=== PATIENT | female | born 1945 | race Caucasian/White ===

== ENCOUNTER 2023-12-26 22:13 | Inpatient (IN) | payer MEDICARE, SELFPAY ==
[2023-12-26] VITALS (20 sets, daily range): BP systolic 69–154; BP diastolic 47–87; BMI 34.5; BMI 34.7
[2023-12-26 16:00] LABS: Hematocrit 40.6 % (37.0-47.0); Hemoglobin 13.8 g/dL (12.0-16.0); Mean Corpuscular Hgb 30.1 pg (27.0-31.0); Mean Corpuscular Volume 88.5 fL (81.0-99.0); Mean Platelet Volume 10.9 fL (7.4-10.4); Platelet Count 167 10^3/uL (130-400); Red Blood Cell Count 4.59 10^6/uL (4.20-5.40); Red Cell Dist. Width 14.3 % (11.5-14.5); White Blood Cell Count 9.4 10^3/uL (4.8-10.8)
[2023-12-26 16:12] LABS: Lactic Acid 2.7 mmol/L (0.7-2.0)
[2023-12-26 16:13] LABS: ALT (SGPT) 11 U/L (0-35); AST (SGOT) 24 U/L (14-36); Alkaline Phosphatase 97 U/L (38-126); Blood Urea Nitrogen 40 mg/dl (7-17); Calcium 9.4 mg/dl (8.4-10.2); Carbon Dioxide 20 mmol/L (22-30); Chloride 100 mmol/L (98-107); Glucose 153 mg/dl (70-99); Potassium 3.6 mmol/L (3.5-5.1); Sodium 133 mmol/L (135-145); Total Protein 6.5 g/dl (6.3-8.2); eGFR 26.36
[2023-12-26 16:18] LABS: % Basophils 0.6 % (0-2); % Eosinophils 0.1 % (0-6); % Immature Granulocytes 0.7 % (0-0.5); % Lymphocytes 3.9 % (20.5-51.1); % Monocytes 4.8 % (1.7-9.3); % Neutrophils 89.9 % (42.2-75.2); Absolute Basophils 0.1 10^3/uL (0-0.2); Absolute Immature Granulocytes 0.1 10^3/uL (0-0.05); Absolute Lymphocytes 0.4 10^3/uL (1.2-3.4); Absolute Monocytes 0.5 10^3/uL (0.1-0.6); Absolute Neutrophils 8.5 10^3/uL (1.4-6.5); Nucleated Red Blood Cells % 0 %
[2023-12-26 16:20] LABS: COVID-19 Antigen Negative (Negative)
--- NOTE | 2023-12-26 17:47 | ED.GENMED ---
History of Present Illness
General
Chief Complaint: Fever
Source: patient
Exam Limitations: none
Time Seen by Provider: 12/26/23 17:23
Nursing documentation reviewed up to this point in time: agreed with
History of Present Illness
History of Present Illness:
Patient presents to ED secondary to 3-day history of 'not feeling well', associated with nausea and vomiting, as well as difficulty with urination starting this afternoon. Patient also reports fever at home. Denies diarrhea. Denies headache.
Denies coughing. Denies chest pain or shortness of breath. Denies abdominal pain. Denies back pain. Of note, patient reports having been treated for sepsis secondary to 'blockage' in the past.
Review of Systems
Review of Systems
Allergies reviewed?: Yes
All Other Systems: ROS reviewed and negative except as documented in HPI and ROS
Constitutional: Reports no symptoms
EENT: Reports no symptoms
Respiratory: Reports no symptoms
Cardiac: Reports no symptoms
ABD/GI: Reports nausea and vomiting; Denies abdominal pain or diarrhea
: Reports difficulty voiding
Musculoskeletal: Reports no symptoms
Skin: Reports no symptoms
Neurological: Reports no symptoms
Phy Exam
Physical Exam
Physical Exam:
Physical Exam
General: mild distress, not acutely ill. afebrile
Head: nc/at. eomi
Neck: supple. no meningeal signs.
Heart: s1/s2 regular rate and rhythm, no murmur. equal radial pulses.
Lungs: no acute respiratory distress. clear bilaterally
Abdomen: normal bowel sounds. not tender.
Neuro: alert and oriented. no focal neurological deficits
Skin: no rash
Psychiatric: well kept. interactive and cooperative
Extremities: no edema. no calf tenderness.
Course
Orders/Labs/Results
Orders:
Orders
12/26/23 15:36
CMP [Comprehensive Metabolic Panel] Urgent
COVID-19 Antigen Urgent
Source: Nasal Swab
Complete Blood Count/With Diff Urgent
Lactic Acid Urgent
INF RAPID [Influenza A+B Rapid Molecular] Urgent
DAVI Source: Nasal Swab
Specimen Description:
12/26/23 17:36
Bladder Scan- Treatment ONCE
12/26/23 17:37
CT Abd/pel Without Iv Or Oral Urgent
Comment:
Reason For Exam: flank pain, in ARF
12/26/23 17:38
0.9% Sodium Chloride 1000 ml [Nss] 1,000 ml IV BOLUS
Ondansetron Injectable [Zofran] 4 mg IV NOW STA
12/26/23 19:03
EKG [Electrocardiogram (*1)] Urgent
Reason for Study: Tachycardia
EKG- Treatment ONCE
12/26/23 19:08
Urinalysis Reflex To Culture Urgent
Date Specimen was Collected: 12/26/23
Time Specimen was Collected: 19:07
Urine Microscopic Reflex Cult Urgent
Urine Culture Urgent
DAVI Source: U
Specimen Description:
Date Specimen was Collected: 12/26/23
Time Specimen was Collected: 19:07
12/26/23 19:09
Metoprolol [Lopressor] 5 mg .ROUTE .STK-MED ONE
12/26/23 19:18
Metoprolol [Lopressor] 5 mg IV NOW STA
12/26/23 19:28
0.9% Sodium Chloride 500 ml [Nss] 500 ml IV BOLUS
12/26/23 19:31
EKG [Electrocardiogram (*1)] Urgent
Reason for Study: Other
Other Reason for Exam: rhythm change
EKG- Treatment ONCE
12/26/23 19:51
Ketorolac [Toradol] 15 mg IV NOW STA
12/26/23 20:17
CefTRIAXone [Rocephin] 1,000 mg IV NOW STA
12/26/23 20:19
Sterile Water [Sterile Water For Injection] 10 ml .ROUTE .STK-MED ONE
12/26/23 20:23
Ondansetron Injectable [Zofran] 4 mg .ROUTE .STK-MED ONE
Ondansetron Injectable [Zofran] 4 mg IV NOW STA
12/26/23 20:43
0.9% Sodium Chloride 500 ml [Nss] 500 ml IV BOLUS
HYDROmorphone [Dilaudid] 0.5 mg IV NOW STA
Ondansetron Injectable [Zofran] 4 mg IV NOW STA
12/26/23 21:00
Flush (0.9% Sodium Chloride) [Flush (Nss)] See Dose Instructions IV PER PROTOCOL
12/26/23 21:15
Midazolam HCl [Versed] 2 mg .ROUTE .STK-MED ONE
12/26/23 21:25
Diltiazem 125 mg/125 ml Nss [Cardizem] 125 mg in 125 ml .ROUTE .STK-MED
12/26/23 21:30
Admit/Transfer Patient As Directed
Co-Sign Provider:
Level of Care: Inpatient admission
Assign to:: ICU
Physician / Group: Cleo/Hospitalist
Diagnosis: SVT, Pyelonephritis, UTI
Reason for Hospitalization: SVT, Pyelonephritis, UTI
Expected length of stay greater than two midnights?: Yes
ELOS- Estimated Length of Stay in days: 4
I certify the patient meets the requirements for IP care: Yes
12/26/23 21:31
PRN Pain Medication Management As Directed
May give lesser potent ordered pain med per pt: Yes
preference::
Protocol:: Medication orders for pain may be administered in a
manner that supports deferring to patient preference
when the pt is:
- Requesting an ordered lesser potent pain medication.
Least to most potent pain medications are defined
as: acetaminophen < NSAID < tramadol < opioids
(morphine, oxycodone, hydromorphone).
- Requesting a lesser dose of the same medication IF
ORDERED.
- Requesting a less intrusive route of administration
if both routes are prescribed by the provider (PO <
IV).
12/26/23 21:32
Code Status As Directed
Resuscitation Status: Full Code
Midazolam HCl [Versed] 1 mg IV NOW STA
12/26/23 21:44
Diltiazem [Cardizem] 120 mg .ROUTE .STK-MED ONE
12/26/23 21:51
Diltiazem [Cardizem] 60 mg PO NOW STA
12/26/23 22:03
Amiodarone [Cordarone] 150 mg Dextrose 5%/Water 100 ml [D5w] 100 ml IV NOW
12/26/23 22:15
Amiodarone [Cordarone] 900 mg DEXTROSE 5% PVC-free BAG [D5W PVC-free BAG] 500 ml IV PER PROTOCOL
Initial Dose in mg/min:: 1
Duration of initial dose (hours):: 6
Subsequent dose in mg/min:: 0.5
Duration of subsequent dose (hours):: 18
Maximum dose in mg/min:: 1
Hold and notify provider if:: Heart rate < 60 BPM or SBP < 90 mmHg or MAP < 60 mmHg
12/26/23 22:33
Blood Culture Urgent
DAVI Source: Blood/Venous
Specimen Description:
12/26/23 23:00
0.9% Sodium Chloride 1000 ml [Nss] 1,000 ml IV 125 mls/hr
Acetaminophen [Tylenol/Feverall] 650 mg RECTAL Q4HPRN PRN
Acetaminophen [Tylenol] 650 mg PO Q4HPRN PRN
Amiodarone [Cordarone] 900 mg DEXTROSE 5% PVC-free BAG [D5W PVC-free BAG] 500 ml IV PER PROTOCOL
Initial Dose in mg/min:: 1
Duration of initial dose (hours):: 6
Subsequent dose in mg/min:: 0.5
Duration of subsequent dose (hours):: 18
Maximum dose in mg/min:: 1
Hold and notify provider if:: Heart rate < 60 BPM or SBP < 90 mmHg or MAP < 60 mmHg
Bisacodyl [Dulcolax] 10 mg RECTAL [id number] PRN
Docusate W/Senna [Senokot-S] 1 tablet PO BIDPRN PRN
Polyethylene Glycol Powder [Miralax] 17 grams PO DAILYPRN PRN
12/26/23 23:00
Echo 2D MMode Color/Doppler [Echo 2D MMode Color/Doppler] Routine
Reason for Study: SVT
CARDIOLOGY CONSULT Routine
Consulting Provider: Edward Guevara
Was physician already notified: Yes
Reason for consult: SVT s/p cardioversion, Pyelo/UTI/sepsis
Consult Notification Routine
Specialty to Notify: Chemical Laboratory Scientist
Consult Notification Routine
Specialty to Notify: Urology
Chemical Laboratory Scientist Consult Routine
Consulting Provider: Bella Pate
Was physician already notified: No
Reason for consult: sepsis, UTI, pyelonephritis
UROLOGY CONSULT Routine
Consulting Provider: Garcia Greenberg Jr.
Was physician already notified: No
Comment: question of old stent on CT, pyelo, UTI
Activity As Directed
Activity Level: With Assistance
Intake/ Output As Directed
Frequency: Per unit guidelines
Pneumatic Compression Sleeves As Directed
Type: Knee high
Vital Signs As Directed
Frequency: Per unit guidelines
Weight As Directed
Frequency: Daily
Pulse Ox/spot Check [RESP] Routine
Quantity: 1
DX Deep Vein Thrombosis Video Routine
12/26/23 23:36
Troponin I Q6H
12/27/23 00:00
Piperacillin/Tazo 2.25 Gram [Zosyn] 2.25 grams in 50 ml IV Q6H
12/27/23 05:00
Troponin I Q6H
12/27/23 Breakfast
Full Liquids
At Your Request: Full Participation
Basic Metabolic Panel IN AM
Complete Blood Count/With Diff IN AM
Magnesium IN AM
12/27/23 11:00
Troponin I Q6H
12/27/23 18:00
Enoxaparin Sodium [Lovenox] 40 mg SC QPM
Abnormal Lab Results
12/26/23 12/26/23
15:36 19:08
MPV 10.9 H fL
(7.4-10.4)
Abs Immat Gran (auto) 0.1 H 10^3/uL
(0-0.05)
Absolute Neuts (auto) 8.5 H 10^3/uL
(1.4-6.5)
Absolute Lymphs (auto) 0.4 L 10^3/uL
(1.2-3.4)
Immature Gran % 0.7 H %
(0-0.5)
Neutrophils % 89.9 H %
(42.2-75.2)
Lymphocytes % 3.9 L %
(20.5-51.1)
Sodium 133 L mmol/L
(135-145)
Carbon Dioxide 20 L mmol/L
(22-30)
BUN 40 H mg/dl
(7-17)
Creatinine 1.9 H mg/dL
(0.6-1.0)
Glucose 153 H mg/dl
(70-99)
Lactic Acid 2.7 H mmol/L
(0.7-2.0)
Ur Occult Blood Reflex 3+ A
(Negative)
Urine Nitrite (Reflex) Positive A
(Negative)
Leukocyte Esterase Rfl 2+ A
(Negative)
Urine RBC 3-6 A /HPF
(0-2)
Urine WBC (Reflex) 80-90 A /HPF
(0-5)
Urine Bacteria (Reflex) Many A
(Negative)
Urine Albumin (Reflex) 2+ A
(Neg - Trace)
12/26/23 15:36
12/26/23 15:36
Vital Signs
Initial and Last Documented VS:
Initial Vital Signs
Temp Pulse Resp BP Pulse Ox
100.2 F 94 16 154/87 96
12/26/23 15:21 12/26/23 15:21 12/26/23 15:21 12/26/23 15:21 12/26/23 15:21
Last Documented Vital Signs
Temp Pulse Resp BP Pulse Ox
99 F 77 22 102/57 98
12/27/23 00:00 12/27/23 00:30 12/27/23 00:30 12/27/23 00:00 12/27/23 00:30
Procedures
Cardioversion
Indication:: SVT
Performed by:: Javid Degroot M.D.
Synchronized?: Yes
Energy Used: Other (100 J)
Number of attempts: 1
Successful?: Yes
Complications: None
ASA Risk Score: Class I
Any reaction or bad outcome to prior sedation/anesthesia?: No history of a reaction
Sedation level to be attained: moderate
Chart and allergies reviewed: Yes
Patient reassessed prior to sedation: Yes
Time out completed at (validating right patient & procedure): 21:23
History of difficult intubation: No
Airway free of obstruction: Yes
Patient has a gag reflex: Yes
Patient is able to open mouth: Yes
Patient has no dentures: Yes
Patient has no loose teeth: Yes
Medication administered by Provider during Moderate Sedation: Other (versed)
Total dose administered: 1
Start Time: 21:23
Stop Time: 21:33
MDM/Problems Addressed
MDM/Problems Addressed:
History, exam, blood work, urinalysis, along with CT scan concerning for symptoms secondary to pyelonephritis. Acute renal failure likely secondary to infection as well as dehydration. In addition, during observation ED, patient noted to be in SVT
rhythm on the monitor, requiring treatment with Lopressor 5 mg IV.
Patient will be admitted for further evaluation treatment, including IV fluids, IV antibiotics, and further monitoring secondary to SVT.
As patient is waiting to be admitted, patient noted to show SVT on the monitor with heart rate greater than 180 bpm. Although patient without any symptoms secondary to heart rate, i.e. dizziness/weakness/shortness of breath, patient's blood
pressure continued to decrease. As such, after discussion with patient, decision made to perform cardioversion.
Procedure consent on the chart.
Patient given 1 mg Versed, secondary to hypotension and successfully cardioverted with application of a 100 J. Blood pressure improved and patient noted to be in normal sinus rhythm. Patient will be started on Cardizem infusion.
Unfortunately before Cardizem infusion can be started, patient noted to once again become tachycardic with hypotension. Admitting hospitalist spoke with on-call disabilities services officer, Dr. Guevara. Recommended that patient to be started on amiodarone
infusion.
Critical care statement: A total of 60 minutes of critical care time was provided for this patient. This includes management of unstable vital signs, evaluation of the patient at bedside, reviewing the patient's pertinent medical records, review of
old EKGs and review of pertinent medical records. This time with separate from time utilized to perform the aforementioned documented procedures
*Critical Care Note
Total Time (30-74mins, 75-104mins- exclusive of procedures): 60 min
ED Attending Note
-
Portions of this chart may have been created with voice recognition software.� Occasional wrong word or��sound alike� substitutions may have occurred due to the inherent limitations of voice recognition software.
Discharge Plan
Departure
Patient Disposition: Admit
Date of Disposition: 12/26/23
Time of Disposition: 20:29
Admit to: Telemetry
Presentation/result/management discussed w/ accepting MD/DO: Hospitalist
Discharge Problem:
Acute pyelonephritis, Acute renal failure, SVT (supraventricular tachycardia)
Interventions
Interventions:
*General Assessment Last Done: 12/26/23 18:07
*Neglect/Abuse Screening Last Done: 12/26/23 18:07
ED- Fall Risk Assessment Last Done: 12/26/23 18:11
*ED COVID-19 Vaccine History Last Done: 12/26/23 18:07
*Nursing Disposition Last Done: 12/26/23 23:12
ED- Neurological Assessment Last Done: 12/26/23 18:09
ED-Skin Assessment Last Done: 12/26/23 18:12
Discharge Date and Time
Discharge Date/Time: 12/26/23 23:13
[2023-12-26] MEDS: NSS 1000 IV (18:12)
[2023-12-26] MEDS: ZOFRAN 4 MG IV ×3 (18:12→20:47)
[2023-12-26 19:19] LABS: Urine Albumin 2+ (Neg - Trace); Urine Bilirubin Negative (Negative); Urine Character Clear (Clear); Urine Color Yellow; Urine Glucose Negative (Negative); Urine Ketone Negative (Negative); Urine Leukocyte 2+ (Negative); Urine Nitrite Positive (Negative); Urine Occult Blood 3+ (Negative); Urine Specific Gravity 1.015 (<1.030); Urine Urobilinogen Negative (Neg - 1+)
[2023-12-26] MEDS: LOPRESSOR 5 MG IV (19:19)
[2023-12-26 19:26] LABS: Urine Bacteria Many (Negative); Urine White Cell 80-90 /HPF (0-5)
[2023-12-26] MEDS: NSS 500 IV ×2 (19:28→20:46)
[2023-12-26] MEDS: ROCEPHIN 1000 MG IV (20:21)
[2023-12-26] MEDS: TORADOL 15 MG IV (20:21)
--- NOTE | 2023-12-26 20:41 | HPS.HSE ---
Addendum entered and electronically signed by Kae Gallo, DO 12/26/23 22:16:
Uro consult placed to eval question of old stent on CT imaging
Addendum entered and electronically signed by Kae Gallo, DO 12/26/23 22:11:
Greater than 75 minutes of critical care time is spent on the care of the patient.
Original Note:
Family Physician
-
Family Physician: Turner Mcmullen
Chief Complaint
-
n/v, difficulty urinating
History of Present Illness
The patient is an 78 yo woman with PMH significant for HTN, HLD, TIA, who presents to the ED due to not feeling well for 3 days, associated with nausea, vomiting, and urinary complaints that started today. She has not been able to take her BP
medication Diltiazem for 3 days due to n/v. She's had little PO intake as well due to symptoms. Of note, she has history of septic shock from UTI/Pyelo and possibly kidney stones but she does not recall stents being placed at that time.
ED txt:
Metoprolol 5 mg IV once
IVF 2 liter bolus NS
Toradol 15 mg IV, Dilaudid 0.5 IV, Zofan IV
Rocephin IV
Cardioversion x 1, followed by oral Diltiazem short-acting 60 mg
Amiodarone gtt initiated for persistent SVT s/p cardioversion, in setting of hypotension from suspected sepsis.
Medical History
Past Medical History
Past Medical History: Reports HTN (essential), Hypercholesterolemia, Psychiatric (Depression) and Other (Diverticulosis, OA, TIA, ventral hernia)
Past Surgical History: Reports Appendectomy, Orthopedic (revision of left total knee replacement, lumbar spine sx posterior decompression) and Tonsilectomy
Social History
Tobacco: Non-smoker
Alcohol: Occasional
Drug: None
Personal:
Living: With Family
Family History
Family History: Not pertinent
Allergies / Home Medications
Allergies reflects when Allergies were last updated in [employer].
Home Medications with original date entered in [employer]
Allergy/Medication List:
Allergies
Allergy/AdvReac Type Severity Reaction Status Date / Time
Seasonal Allergy Watery/itching Uncoded 08/01/18 07:29
eyes,
nasal
congestion
Home Medications
diltiazem HCl 120 mg capsule,extended release 24 hr, controlled 120 mg PO QPM 06/09/16
vitamin B complex 1 tab PO QPM 06/09/16
Caltrate 1 tab PO HS 07/20/18
Vitamin C: 1 tab PO QPM 07/20/18
Vitamin D 1 tab PO QPM 07/20/18
mupirocin 2 % topical ointment 1 applic intranasal BID #1 tube 07/22/18
cetirizine 5 mg tablet (Zyrtec) 10 mg PO AMHS 08/01/18
diphenhydramine HCl 25 mg oral strips 25 mg PO DAILY 08/01/18
acetaminophen 325 mg tablet 650 mg (2 x 325 mg) PO QID 08/03/18
aspirin 325 mg tablet,delayed release 325 mg PO DAILY 08/03/18
famotidine 20 mg tablet 20 mg PO HS #30 tabs 08/03/18
naproxen sodium 220 mg tablet (Aleve) 220 mg PO BID ##0 08/03/18
oxycodone 5 mg tablet 5 mg PO Q4HPRN PRN moderate-severe pain ##45 08/03/18
tramadol 50 mg tablet 50 mg PO QID ##30 08/03/18
Review of Systems
-
A 12 point ROS was completed and negative except as noted: Yes
Physical Exam
Vital Signs
Vital Signs
Temp Pulse Resp BP Pulse Ox
100.2 F 92 24 107/77 95
12/26/23 15:21 12/26/23 20:15 12/26/23 20:15 08/18/24 20:00 12/26/23 20:15
Physical Exam
General: Well Developed, Well Nourished, Conversant and Other (in SVT during HPI, without symptoms)
Laboratory Results
-
12/26/23 15:36
12/26/23 15:36
Laboratory Results
Lactic Acid 2.7 mmol/L (0.7-2.0) H 12/26/23 15:36
Total Bilirubin 1.0 mg/dl (0.2-1.3) 12/26/23 15:36
AST 24 U/L (14-36) 12/26/23 15:36
ALT 11 U/L (0-35) 12/26/23 15:36
Alkaline Phosphatase 97 U/L (38-126) 12/26/23 15:36
Data Reviewed
-
CT Scan: Report Reviewed by me (CT a/p stranding and edema along the right kidney which extends along the proximal right ureter. No hydronephrosis. No discrete renal calculus. There is a stent which appears. Adjacent to the distal right ureter
(series 201 image [id number]). The left kidney is unremarkable.)
Impression/Plan
-
IMPRESSION:The patient is an 78 yo woman with PMH significant for HTN, HLD, TIA, who presents to the ED due to not feeling well for 3 days, associated with nausea, vomiting, and urinary complaints that started today. She has not been able to take
her BP medication Diltiazem for 3 days due to n/v. She's had little PO intake as well due to symptoms. Of note, she has history of septic shock from UTI/Pyelo and possibly kidney stones but she does not recall stents being placed at that time.
ED txt:
Metoprolol 5 mg IV once
IVF 2 liter bolus NS
Toradol 15 mg IV, Dilaudid 0.5 IV, Zofan IV
Rocephin IV
Cardioversion x 1, followed by oral Diltiazem short-acting 60 mg
Amiodarone gtt initiated for persistent SVT s/p cardioversion, in setting of hypotension from suspected sepsis.
#Sepsis (fever, tachy, lactic acidosis) associated with SVT and hypotension, due to Acute pyelonephritis, -normal WBC with leftward shift a/w lactic acidosis, tachyarrhythmia, and abnormal UA concerning for UTI
-CT a/p w stranding and edema tracking along the right kidney, tracking along the proximal ureter concerning for pyelonephritis. No hydronephrosis and no discrete renal calculus is visualized. stent which appears. Adjacent to the distal right ureter
(series 201 image [id number]). The left kidney is unremarkable.
-ICU admission, high risk for worsening hemodynamic instability requiring pressor support
-IV Rocephin in ED, will continue abx w IV Zosyn
-blood cx, urine cx pending
-Acid Polymerization Operator consultation
-s/p 2.5L IV sepsis protocol dosing, continue NS 125 mL per hour and bolus as needed
#SVT that is sustained despite IV Lopressor, Cardioversion in ED, and s/p oral Diltazem 60 mg, likely driven by sepsis and volume depletion
-Cards consultation placed
-tele monioring in ICU
-started Amio gtt in ED & continue Amio gtt
-can use Lopressor 5 mg IV prn if still w SVT
-serial trop
-echocardiogram
#Sodium 133
-repeat lab monitoring s/p IVF
#IVETTE Creatinine 1.9 (last creatinine was 0.8) likely due to sepsis
-IVF
-renally dose meds, repeat labs in am
#HLD
-statin
#Essential HTN
-hold Diltiazem for now
DVT proph-PCDs, Lovenox
Full Code
[2023-12-26] MEDS: DILAUDID 0.5 MG IV (20:46)
[2023-12-26] MEDS: VERSED 1 MG IV (21:23)
--- NOTE | 2023-12-26 21:24 | EDRN ---
pt in SVT on monitoring manager, BP 74/53 Dr. Degroot at bedside
2122 1mg versed given IV
2123 shocked pt at 200J
pt returned to NSR on tele monitor
pt awake and alert. BP 124/61
[2023-12-26] MEDS: CARDIZEM 60 MG PO (21:55)
[2023-12-26] MEDS: CORDARONE 103 MG IV (22:28)
[2023-12-26] MEDS: CORDARONE 518 MG IV (22:43)
--- NOTE | 2023-12-26 23:37 | PTCARENOTE ---
received pt. from ED approx 2250.
Currently in NSR, MAPs 85 SBP 90s. Currently normothermic, slightly diaphoretic.
Mentating appropriately, no neurological deficits noted.
Arrived on Amio gtt, started on NSS @ 125ml/hr.
Pt. offers no complaints of pain, discomfort, all questions answered.
[2023-12-27] VITALS (21 sets, daily range): BP systolic 93–169; BP diastolic 57–104; BMI 34.7
[2023-12-27 00:14] LABS: Troponin I 0.046 ng/ml
[2023-12-27] MEDS: NSS 1000 IV ×3 (00:14→21:43)
[2023-12-27] MEDS: ZOSYN 50 IV ×4 (00:14→17:46)
--- NOTE | 2023-12-27 00:41 | W.PN.SEPSIS ---
Sepsis
Vital Signs
Temp Pulse Resp BP Pulse Ox
97.9 F 88 19 99/78 96
12/26/23 23:17 12/26/23 23:09 12/26/23 23:09 12/26/23 23:09 12/27/23 00:02
Physical Exam
Physical Exam:
A focused exam was performed after fluid resuscitation.
Capillary Refill
Bilateral Upper Extremity:
Robby Time: Less than 3 sec
Bilateral Lower Extremity:
Robby Time: Less than 3 sec
Pulse Evaluation
Bilateral Radial:
Pulse Evaluation: Present
Bilateral Dorsalis Pedis:
Pulse Evaluation: Present
--- NOTE | 2023-12-27 04:32 | PTCARENOTE ---
Addendum entered by Seth Mcmullen RN 12/27/23 05:44:
N/V increasing, ICU HASMUKH notified, promethazine gtt ordered.
Addendum entered by Seth Mcmullen RN 12/27/23 04:54:
pt. c/o nausea, zofran ordered.
Original Note:
0500 pt will be switched to 0.5 mg/min of amio gtt.
No change in assessment from prior,
Remains in sinus, normotensive, normothermic.
[2023-12-27] MEDS: CORDARONE 518 MG IV (05:04)
[2023-12-27] MEDS: ZOFRAN 4 MG IV ×3 (05:04→18:41)
[2023-12-27 05:17] LABS: APTT 41.1 Sec (23.4-35.0)
[2023-12-27 05:20] LABS: Blood Urea Nitrogen 40 mg/dl (7-17); Calcium 8.2 mg/dl (8.4-10.2); Carbon Dioxide 20 mmol/L (22-30); Chloride 99 mmol/L (98-107); Estimated Creatinine Clearance 26 ml/min; Glucose 270 mg/dl (70-99); Magnesium 1.8 mg/dl (1.6-2.3); Phosphorus 4.6 mg/dl (2.5-4.5); Potassium 3.8 mmol/L (3.5-5.1); Sodium 131 mmol/L (135-145); eGFR 24.79
[2023-12-27 05:32] LABS: Troponin I 0.097 ng/ml
[2023-12-27 05:34] LABS: Hematocrit 36.4 % (37.0-47.0); Hemoglobin 11.8 g/dL (12.0-16.0); Mean Corp Hgb Conc. 32.4 g/dL (33.0-37.0); Mean Corpuscular Hgb 30.1 pg (27.0-31.0); Mean Corpuscular Volume 92.9 fL (81.0-99.0); Mean Platelet Volume 11.7 fL (7.4-10.4); Platelet Count 167 10^3/uL (130-400); Red Blood Cell Count 3.92 10^6/uL (4.20-5.40); Red Cell Dist. Width 14.6 % (11.5-14.5); White Blood Cell Count 9.7 10^3/uL (4.8-10.8)
[2023-12-27] MEDS: PHENERGAN 50.5 MG IV (05:47)
[2023-12-27 07:08] LABS: Absolute Neutrophils -Man Diff 9.2 10^3/uL (1.4-6.5); Band Neutrophils 20 % (0-3); Lymphocytes 3 % (20-51); Monocytes 2 % (2-9); Segmented Neutrophils 75 % (42-75); Toxic Granulation 1+
[2023-12-27 07:10] LABS: Total Cells Counted 100; Vacuolated Segs 1+
[2023-12-27 07:11] LABS: Platelets Checked Yes
[2023-12-27 07:12] LABS: Normal RBC Morphology No; Ovalocytes Occasional; Polychromasia Occasional
--- NOTE | 2023-12-27 07:42 | CON.CAR ---
Addendum entered and electronically signed by BHAKTI Huston 12/27/23 12:15:
Abnormal troponin, likely nonischemic myocardial injury in the setting of sepsis
-Trend to peak
-Chest pain-free
-EKG in a.m.
Addendum entered and electronically signed by Evaristo Anderson MD 12/27/23 10:56:
I saw and examined the patient.
The PRESS OFFICER's note was reviewed and I agree with the note.
Comment: 78 yo woman admitted with rapid SVT (most c/w AVNRT) in setting of urologic infection and missed dilt doses. Sinus 12 lead ekg unremarkable. No known prior SVT
SVT
- Stop Amio
- Use Adenosine if SVT recurs
- Resume usual Dilt
- I taught her the Valsalva maneuver for self termination
- I reviewed that ablation is available if SVT becomes recurrent/symptomatic
- Outpatient cardiology follow will not likely be needed
Urologic infection
HTN
Mixed hyperlipidemia
Original Note:
Consultation
Consultation Request
Date/Time Consultation Requested: 12/26/2023 23:00
Date/Time Consultation Performed: 12/27/2023 19:45
Requesting Provider: Dr. Gallo
Performing Provider: BHAKTI De Jesus for Dr. Anderson
Reason for Consultation: SVT
Medical History
-
Chief Complaint: Nausea and vomiting
History of Present Illness:
Melanie Robertson is an 78-year-old female (followed by Dr. Morse), with hypertension, dyslipidemia, TIA and OA who presented to the emergency department after feeling unwell. She presented on Wednesday. She states she suddenly had the general sense of
severe fatigue on Wednesday afternoon. She then began having nausea and vomiting. It was mainly dry heaves as she had no appetite. She did not take her medications on Wednesday nor Wednesday due to her constant dry heaving. She has a history of septic
shock due to UTI/pyelonephritis. She was found to be in SVT. She was given Lopressor IV push. There was no change in her rhythm. She underwent cardioversion in the emergency department. She was started on amiodarone. She reports having no
feeling of palpitation, racing heart, syncope, nor dizziness despite her heart rate in the 180s.
Past Medical History
Past Medical History: HTN and Hypercholesterolemia
Past Surgical History: Appendectomy, Orthopedic and Tonsilectomy
Social History
Tobacco: Non-Smoker
Alcohol: Occasional
Drug: None
Personal:
Living: With Family
Employment: Retired
Family History
Family History: Reviewed & Not Pertinent
Allergies / Home Medications
Allergy/AdvReac Type Severity Reaction Status Date / Time
Seasonal Allergy Watery/itching Uncoded 08/01/18 07:29
eyes,
nasal
congestion
�Medication �Instructions �Recorded �Confirmed �Type
diltiazem HCl 120 mg 120 mg PO QPM 06/09/16 08/01/18 History
capsule,extended release 24 hr,
controlled
vitamin B complex 1 tab PO QPM 06/09/16 08/01/18 History
Caltrate 1 tab PO HS 07/20/18 08/01/18 History
Vitamin C: 1 tab PO QPM 07/20/18 08/01/18 History
Vitamin D 1 tab PO QPM 07/20/18 08/01/18 History
mupirocin 2 % topical ointment 1 applic intranasal BID #1 tube 07/22/18 Rx
cetirizine 5 mg tablet (Zyrtec) 10 mg PO AMHS 08/01/18 08/02/18 History
diphenhydramine HCl 25 mg oral 25 mg PO DAILY 08/01/18 08/01/18 History
strips
acetaminophen 325 mg tablet 650 mg (2 x 325 mg) PO QID 08/03/18 Rx
aspirin 325 mg tablet,delayed 325 mg PO DAILY 08/03/18 Rx
release
famotidine 20 mg tablet 20 mg PO HS #30 tabs 08/03/18 Rx
naproxen sodium 220 mg tablet 220 mg PO BID ##0 08/03/18 08/01/18 Rx
(Aleve)
oxycodone 5 mg tablet 5 mg PO Q4HPRN PRN moderate-severe 08/03/18 Rx
pain ##45
tramadol 50 mg tablet 50 mg PO QID ##30 08/03/18 Rx
Review of Systems
-
History Source: Patient
All other systems: Negative unless noted
Constitutional: Fatigue
EENT: No Symptoms
Respiratory: No Symptoms
Cardiac: No Symptoms
Abdomen/GI: No Symptoms
: No Symptoms
Musculoskeletal: No Symptoms
Skin: No Symptoms
Neurological: Weakness
Endocrine: No Symptoms
Hematologic/Lymphatic: No Symptoms
Physical Exam
Vital Signs
Temp Pulse Resp BP Pulse Ox
98.9 F 71 21 129/83 99
12/27/23 05:39 12/27/23 04:30 12/27/23 04:30 12/27/23 04:00 12/27/23 04:30
Lab Results
12/27/23 04:49
12/27/23 04:49
Troponin I 0.097 ng/ml H* D 12/27/23 04:49
Physical Exam
General: Well Developed, Well Nourished, No Apparent Distress and Comfortable
HEENT: Normocephalic, Anicteric and Moist Mucous Membranes
Respiratory: Clear and Non Labored Respirations
Cardiac: S1/S2 and Regular Rhythm
Breast: Deferred by me
GI: Soft, Non Tender, Non Distended and Normal Bowel Sounds
Rectal: Deferred by Provider
Genito-urinary: No Costovertebral Tender
Musculoskeletal: No Clubbing and No Cyanosis
Skin: Warm and Dry
Neuro: AO x 3
Hematologic/Lymphatic: No Lymphadenopathy
Psych: Calm
Impression / Plan
-
BACKGROUND 78F with HTN, HLD, prior TIA, and pre-diabetes presented with nausea/vomiting. She had SVT and required cardioversion in the ER.
Sepsis - suspected to be in the setting of UTI
-Fever, tachycardia, and lactic acidosis
-Per primary/urology
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
-Cardioverted in ED (12/26/2023) & started on amiodarone gtt
-Resume diltiazem 120mg daily (she did not take it Wednesday and Wednesday due to N/V)
-Echo today
IVETTE in the setting of UTI, Urology following
HTN
HLD
Prior TIA
Pre-diabetes
Data Reviewed
-
EKG: Report Reviewed by me (SVT, inferior/anterolateral ST abnormality, rate 187; Sinus rhythm rate 84)
Radiology: Report Reviewed by me (CXR: Clear lungs.)
CT Scan: Report Reviewed by me (Abd/Pel CT: There is stranding and edema tracking along the right kidney, tracking along the proximal ureter concerning for pyelonephritis. No hydronephrosis and no discrete renal calculus is visualized. Colonic
diverticulosis without evidence of acute diverticulitis.)
--- NOTE | 2023-12-27 07:51 | CON.INTV ---
Consultation
Consultation Request
Date/Time Consultation Requested: 12/26/2023 - 2299
Date/Time Consultation Performed: 12/27/2023 - 744
Requesting Provider: Cleo Boland
Performing Provider: Dr. Wright
Reason for Consultation: Sepsis
Medical History
-
Chief Complaint: Malaise, sore throat, nausea + vomiting
History of Present Illness:
78-year-old female with past medical history of hypertension, hyperlipidemia, PMR, GERD and chronic pain syndrome who presents with general malaise since this past Wednesday (12/24/2023), + sore throat, nausea and vomiting. She was unable to urinate on
morning of arrival. Initial vitals showed low-grade fever to 100.2 �F, pulse rate 94, breathing at 16 breaths/min, BP 154/87 and saturating 96% on room air. Initial labs showed normal WBC at 9.4, Hb 13.8, serum sodium 133, creatinine 1.9 (last
creatinine 0.8 in July 2018), serum bicarbonate 20, lactate 2.7, urinalysis with positive nitrite/+2 leukocyte esterase and COVID-19 antigen negative. Flu A/B both negative, urine culture + blood cultures collected. CT A/P without contrast showed
stranding + edema along the right kidney concerning for pyelonephritis without hydronephrosis or discrete calculus. She was given ceftriaxone, IV fluids with 1.5L of NS 0.9%. In the ER found to be in SVT with heart rate >180 although patient was
asymptomatic. Patient was however hypotensive and cardioversion was completed after given 1 mg Versed. Successful cardioversion with 100 J. Patient went back into SVT and the 150 mg amiodarone was given then started on gtt. given her hypotension
with concern for SVT, she was admitted to ICU for further care with critical care services consulted for additional management/recommendations.
Patient seen and evaluated morning. She is on 2 L/min nasal cannula saturating 97%, heart rate 75 and BP 123/74. She is on amio gtt at 0.5mg/min. She feels well although is nauseous. Denies shortness of breath, chest pain, flank pain, fevers or
chills. Currently on NS 0.9% at 125cc/hr.
PMHx: Hypertension, hyper cholesterolemia, depression, diverticulosis, osteoarthritis, history of TIA, ventral hernia
PSHx: Appendectomy, left TKA revision, lumbar spine posterior decompression, tonsillectomy
Past Medical History
Past Medical History: Other (Above as per HPI)
Past Surgical History: Other (Above as per HPI)
Social History
Tobacco: Non-smoker
Alcohol: Occasional
Drug: None
Personal:
Living: With Family
Family History
Family History: Reviewed & Not Pertinent
Allergies / Home Medications
Allergies
Allergy/AdvReac Type Severity Reaction Status Date / Time
Seasonal Allergy Watery/itching Uncoded 08/01/18 07:29
eyes,
nasal
congestion
Home Medications
�Medication �Instructions �Recorded �Confirmed �Last Taken �Type
diltiazem HCl 120 mg 120 mg PO QPM 06/09/16 08/01/18 07/31/18 18:00 History
capsule,extended release 24 hr,
controlled
vitamin B complex 1 tab PO QPM 06/09/16 08/01/18 07/28/18 History
Caltrate 1 tab PO HS 07/20/18 08/01/18 07/27/18 History
Vitamin C: 1 tab PO QPM 07/20/18 08/01/18 07/30/18 History
Vitamin D 1 tab PO QPM 07/20/18 08/01/18 07/30/18 History
mupirocin 2 % topical ointment 1 applic intranasal BID #1 tube 07/22/18 Unknown Rx
cetirizine 5 mg tablet (Zyrtec) 10 mg PO AMHS 08/01/18 08/02/18 07/31/18 08:00 History
diphenhydramine HCl 25 mg oral 25 mg PO DAILY 08/01/18 08/01/18 07/30/18 22:00 History
strips
acetaminophen 325 mg tablet 650 mg (2 x 325 mg) PO QID 08/03/18 Unknown Rx
aspirin 325 mg tablet,delayed 325 mg PO DAILY 08/03/18 Unknown Rx
release
famotidine 20 mg tablet 20 mg PO HS #30 tabs 08/03/18 Unknown Rx
naproxen sodium 220 mg tablet 220 mg PO BID ##0 08/03/18 08/01/18 07/25/18 Rx
(Aleve)
oxycodone 5 mg tablet 5 mg PO Q4HPRN PRN moderate-severe 08/03/18 Unknown Rx
pain ##45
tramadol 50 mg tablet 50 mg PO QID ##30 08/03/18 Unknown Rx
Review of Systems
-
History Source: Patient
All other systems: Negative unless noted
Vitals / Labs / Diagnostic Testing
Vital Signs
Temp Pulse Resp BP Pulse Ox
99.7 F 71 21 129/83 99
12/27/23 07:43 12/27/23 04:30 12/27/23 04:30 12/27/23 04:00 12/27/23 04:30
Lab Data
12/27/23 04:49
12/27/23 04:49
Laboratory Results
12/27/23
04:49
PT 17.0 H
INR 1.40
APTT 41.1 H
Microbiology
12/26/23 15:36 Nasal Swab Influenza Types A & B (MIMA) - Final
Negative for Influenza A & B, NAAT
Negative results must be combined with clinical observations
and patient history.
Nucleic Acid Amplification test (NAAT)performed on the
[employer] platform.
Diagnostic Testing:
Physical Exam
-
HEENT: Normocephalic
Cardiovascular: S1/S2 and Peripheral Edema (negative)
Respiratory: Wheeze (negative), Rales (negative), Rhonchi (negative) and Non-Labored Respirations
GI: Soft, Distended (Abdominal obesity), Non Tender and Normal Bowel Sounds
Neurology: AO x 3 and Tremors (negative)
Skin: Warm and Dry
General: Respiratory Distress (negative), Comfortable, Chills (negative) and Sweats (negative)
Assessment
-
Assessment: 78-year-old female with past medical history of hypertension, hyperlipidemia, PMR, GERD and chronic pain syndrome who presents with general malaise since this past Wednesday (12/24/2023), + sore throat, nausea and vomiting. She was unable
to urinate on morning of arrival. Initial vitals showed low-grade fever to 100.2 �F, pulse rate 94, breathing at 16 breaths/min, BP 154/87 and saturating 96% on room air. Initial labs showed normal WBC at 9.4, Hb 13.8, serum sodium 133, creatinine
1.9 (last creatinine 0.8 in July 2018), serum bicarbonate 20, lactate 2.7, urinalysis with positive nitrite/+2 leukocyte esterase and COVID-19 antigen negative. Flu A/B both negative, urine culture + blood cultures collected. CT A/P without
contrast showed stranding + edema along the right kidney concerning for pyelonephritis without hydronephrosis or discrete calculus. She was given ceftriaxone, IV fluids with 1.5L of NS 0.9%. In the ER found to be in SVT with heart rate >180
although patient was asymptomatic. Patient was however hypotensive and cardioversion was completed after given 1 mg Versed. Successful cardioversion with 100 J. Patient went back into SVT and the 150 mg amiodarone was given then started on gtt.
given her hypotension with concern for SVT, she was admitted to ICU for further care with critical care services consulted for additional management/recommendations.
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
Impression:
#Hypotension requiring vasopressors due to acute pyelonephritis - now off vasopressors
#SVT s/p cardioversion in ER + amiodarone bolus + infusion
#Hyponatremia
#Hyperglycemia with prediabetes
#IVETTE (baseline creatinine approximately 0.8 per data from 2019)
#Metabolic acidosis with normal anion gap
#Lactic acidosis � normalized
#Elevated troponin likely due to demand ischemia with type II ME � peaked at 0.111 this morning
#Abnormal urinalysis with positive nitrite with + 2 leukocyte esterase suspicious for UTI
Plan:
- Blood pressure has now normalized and she is not on vasopressors; amiodarone drip being discontinued as HR has normalized and she is back into NSR
- Continue with broad-spectrum antibiotics � currently on Zosyn
- Follow-up urine culture + blood culture
- There is concern for history of urological stent placed in the past - urology consulted; recs appreciated
- Of note, there is a distal right ureteral stent seen on current imaging from 12/26/2023
- Maintain SpO2 >90-94%
- Maintain MAP>65
- No need to continue trending troponin as it has downtrended to 0.098 as of this afternoon
- Trend serum sodium with goal 135�145
- Trend serum HCO3 with goal 22-26
-Antiemetics as needed - will give a dose of Maalox
- Continue with Zofran vs compazine as needed (QTc: 456 ms on 12/26/2023)
- Echo performed today showing preserved LVEF at 55 to 60% with no regional WMA, and mild pulmonary hypertension with PASP 39 mmHg with RAP 8 mmHg with no significant change since prior echo in March 2020
- Replete electrolytes with K>4, Mg>2
- Maintain euglycemia with goal BG 140-180; start ISS low resistance scale
- prn nebulized bronchodilators � not currently bronchospastic
- Incentive spirometer encouraged 10x/hr for at least 4 hrs a day
- DVT ppx
Patient stable for downgrade out of ICU to IMU. Acid Mixer/Pulmonary service will now sign off. Thank you for allowing us to be involved in the care of this patient. Please reconsult if there are any additional questions/concerns, or if
patient's respiratory status deteriorates.
Total time spent today was 75 minutes for this encounter. Time includes reviewing laboratory test/imaging results, reviewing pertinent medical records, obtaining and reviewing medical history, performing an appropriate exam, ordering medications,
tests and procedures. Time also includes documentation of this encounter, coordinating patient care and communicating with other healthcare professionals. Total time does not include separately billed tests performed on this date of service.
Data:
CT A/P without contrast 12/26/2023:
There is stranding and edema tracking along the right kidney, tracking along the proximal ureter concerning for pyelonephritis. No hydronephrosis and no discrete renal calculus is visualized.
Colonic diverticulosis without evidence of acute diverticulitis.
CXR 12/27/2023: Clear lungs.
Transthoracic echocardiogram 12/27/2023:
Normal left ventricular size and systolic function. No regional wall motion
abnormalities are seen. LV ejection fraction is 55-60% by Garcia's method of
discs. Mild concentric left ventricular hypertrophy. Normal diastolic function.
Structurally normal mitral valve. Mitral valve opens normally. Mild mitral
regurgitation.
Structurally normal tricuspid valve. Tricuspid valve opens normally. Mild to
moderate tricuspid regurgitation. Estimated pulmonary artery pressure of 39
mmHg. Assuming a right atrial pressure of 8 mmHg.
Since echo 03/2020, there is no significant change.
--- NOTE | 2023-12-27 07:55 | W.PN.HOSP.TC ---
Addendum entered and electronically signed by Johnathan Chapa MD 12/27/23 10:21:
I saw and evaluated the patient. I reviewed the resident�s note and agree with findings and plan as documented in the resident�s note.
Pt denies CP/SOB/abd pain. Reports abd bloating.
107/60, 74, 19, 99.7 F, 98% RA
Gen: NAD, AAOx3.
Eyes: EOMI, PERRLA, no scleral icterus.
Neck: supple.
CV: RRR, +S1/S2, no m/r/g.
Resp: CTAB anteriorly, no rales, wheezes, or rhonchi.
Abd: +BS, soft, NT, ND
Skin: No rashes. No LE edema.
Neuro: CN 2-12 intact, non-focal.
Psych: Normal mood and affect.
CXR: clear lungs
CT A/P: There is stranding and edema tracking along the right kidney, tracking along the proximal ureter concerning for pyelonephritis. No hydronephrosis and no discrete renal calculus is visualized. Colonic diverticulosis without evidence of acute
diverticulitis.
Severe sepsis due to acute UTI due to R pyelonephritis:
-cont IVFs
-cont Zosyn
-follow UCx/BCxs
-urology to see
-c/s ID
Acute SVT:
-s/p cardioversion in ER followed by Amio gtt
-discussed with cardiology, likely AVNRT
-stop amio, restart cardizem
-check echo
IVETTE:
-true baseline Cr not clear as last Cr in [facility] over 5 years ago
-likely due to sepsis
-cont to trend with IVFs
Hyponatremia, mild, trend
Obesity due to excess calories
Total time spent on today's encounter was 50 minutes which included time spent in counseling the patient/family regarding diagnosis and treatment plan as listed above, goals of care, and symptom management. Case was discussed with nursing staff,
specialists, and care coordinators/case management. All labs and imaging personally reviewed by me. Remainder the time spent in detailed review of previous records, lab data, imaging, and other medical provider documentation.
Original Note:
Today's Communication/Plan
-
- Continue Zosyn
- Urology consultation
- Ondansetron for nausea
- Resume diltiazem
- Echo today
Assessment / Plan
Assessment / Plan
Assessment
The patient is an 78 yo woman with PMH significant for HTN, HLD, TIA, who presents to the ED due to not feeling well for 3 days, associated with nausea, vomiting, and urinary complaints that started today. She has not been able to take her BP
medication Diltiazem for 3 days due to n/v. She's had little PO intake as well due to symptoms. Of note, she has history of septic shock from UTI/Pyelo and possibly kidney stones but she does not recall stents being placed at that time.
Impression and plan
Sepsis secondary to acute pyelonephritis
- Fever, tachy, lactic acidosis associated with SVT and hypotension.
- normal WBC with leftward shift a/w lactic acidosis, tachyarrhythmia, and abnormal UA concerning for UTI
- CT a/p w stranding and edema tracking along the right kidney, tracking along the proximal ureter concerning for pyelonephritis. No hydronephrosis and no discrete renal calculus is visualized. stent which appears. Adjacent to the distal right
ureter (series 201 image 65). The left kidney is unremarkable.
- ICU admission, high risk for worsening hemodynamic instability requiring pressor support
- IV Rocephin in ED, will continue abx w IV Zosyn
- blood cx, urine cx pending
- Filemaker Developer consultation
- s/p 2.5L IV sepsis protocol dosing, continue NS 125 mL per hour and bolus as needed
Supraventricular tachycardia
- Was sustained despite IV Lopressor, Cardioversion in ED, and s/p oral Diltazem 60 mg, likely driven by sepsis and volume depletion
- Cards consultation placed
- tele monioring in ICU
- started Amio gtt in ED & continue Amio gtt
- can use Lopressor 5 mg IV prn if still w SVT
- serial trop
- echocardiogram
Hyponatremia
- repeat lab monitoring s/p IVF
Acute kidney injury
- Creatinine 1.9 (last creatinine was 0.8 in 2018)
- IVF
- renally dose meds, repeat labs in am
Hyperlipidemia
- statin
Essential hypertension
- Hold Diltiazem for now
VTE prophylaxis
- Heparin SC.
Code status
- Full.
Anticipated Discharge: > 48 hours
Subjective/Interval History
-
Date of Service: December 27, 2023
Objective Data
-
Labs:
Laboratory Results
12/27/23
04:49
WBC 9.7
Hgb 11.8 L
Hct 36.4 L
Plt Count 167
PT 17.0 H
INR 1.40
APTT 41.1 H
Sodium 131 L
Potassium 3.8
Chloride 99
Carbon Dioxide 20 L
BUN 40 H
Creatinine 2.0 H
Glucose 270 H
Calcium 8.2 L
Vital Signs:
Vital Signs
Temp Pulse Resp BP Pulse Ox
99.7 F 71 21 129/83 99
12/27/23 07:43 12/27/23 04:30 12/27/23 04:30 12/27/23 04:00 12/27/23 04:30
I&O
12/26/23 12/27/23 12/28/23
06:59 06:59 06:59
Intake Total 1441.5 / 1441.5
Output Total 0 / 0
Balance 1441.5 / 1441.5
Review of Systems
-
History Source: Patient
All other systems: Reviewed and negative
Physical Exam
-
General: No Apparent Distress and Comfortable
HEENT: Normocephalic, Atraumatic, Moist Mucous Membranes and Anicteric
Respiratory: Clear to Auscultation and Non Labored Respirations
Cardiac: Regular Rhythm and S1/S2
GI: Soft, Nontender and Nondistended
Genito-urinary: No Costovertebral Tender
Musculoskeletal: No Clubbing, No Cyanosis and No Edema
Skin: Warm, Dry and IV Access / Catheter Site
Neuro: AO x 3 and Nonfocal/Grossly Intact
Hematologic / Lymphatic: No Lymphadenopathy
Psych: Calm
--- NOTE | 2023-12-27 08:30 | PTCARENOTE ---
Received pt @ change of shift. AAOx3, c/o mild lower back/flank pain; denies pain meds. SR on monitor. SpO2 98% on 2lNC. Afebrile. +BS, abd soft/nt; int nausea @ x's; tolerating full liq diet. Stress inc of bladder. Assisted x1 to BSC to void
and then assisted into chair. Assisted w AM hygiene care. #20 R AC w NSS @ 125mL/hr. #20 R FA w amio gtt- see flow sheet. Instructed on how to reported care concerns and call dona neal in reach.
[2023-12-27] MEDS: HEPARIN 5000 UNITS SC ×2 (08:37→17:46)
[2023-12-27] MEDS: TYLENOL 650 MG PO (10:31)
[2023-12-27] MEDS: CARDIZEM CD 120 MG PO (10:32)
[2023-12-27 11:09] LABS: Lactic Acid 1.9 mmol/L (0.7-2.0)
[2023-12-27 11:33] LABS: Troponin I 0.111 ng/ml
--- NOTE | 2023-12-27 11:46 | CON.ID ---
Consultation
-
Date/Time Consultation Requested: 12/27/2023 1012
Date/Time Consultation Performed: 12/27/2023 1142
Requesting Provider: Dr. Chapa
Performing Provider: Dr. Brown
Reason for Consultation: Clinical sepsis; pyelonephritis
Chief Complaint / Past History
History of Present Illness
Melanie Robertson is an 78-year-old female being evaluated at the request of Dr. Chapa in regards to pyelonephritis. History is obtained from chart review, along with patient interview.
The patient presented to [facility] yesterday evening secondary to 'not feeling well' per the ER notes. She had episodes of nausea and vomiting and difficulty urination starting earlier in the day. She reported fevers while at home.
ER workup did not reveal a leukocytosis, but she was found to have a left shift, along with a lactic acidosis. CT imaging revealed stranding and edema along the right kidney concerning for pyelonephritis. No hydronephrosis was noted.
At present, the patient continues to feel unwell, with associated nausea, although in general body discomfort has improved.
Past History
Additional Past Medical History:
HTN
Nephrolithiasis
Dyslipidemia
Depression
Diverticulosis
Osteoarthritis
Hx TIA
Ventral hernia
Additional Past Surgical History:
Appendectomy
Left total knee replacement
Lumbar spine decompression
Tonsillectomy
Allergy History:
Seasonal Allergy (Uncoded 08/01/18 07:29)
Watery/itching eyes, nasal congestion
Medications Reviewed: Yes
Current Antibiotics:
Zosyn 2.25 g IV every 6 hours
Social History
Tobacco: Non-Smoker
Alcohol: Occasional
Drug: None
Personal:
Living: With Family
Employment: Retired
Family History
Family History: Not Pertinent
Review of Systems
Vital Signs
Temp Pulse Resp BP Pulse Ox
99.9 F 77 19 123/74 98
12/27/23 11:12 12/27/23 10:32 12/27/23 09:30 12/27/23 10:32 12/27/23 09:33
Physical Exam
Physical Exam
Constitutional: No Acute Distress, Comfortable and Non-toxic
Head: Normocephalic
Eyes: Pupils Equal, Pupils Round, No Conjunctival Hemorrhage and Sclera Anicteric
Cardiovascular: Regular Rate and S1/S2; Negative S3/S4
Pulmonary: Clear; Negative Wheezes, Rales or Rhonchi
Gastrointestinal: Soft, Non Tender, Non Distended, Normal Bowel Sounds, No Rebound and No Guarding
Genito-Urinary: Negative Briseno or CVA Tenderness
Extremities: Negative Edema, Cyanosis or Erythema
Neurological: Awake and Alert
Psychological: Calm
.
Lab / Diagnostic Study Results
12/27/23 04:49
12/27/23 04:49
Abs Immat Gran (auto) 0.1 10^3/uL (0-0.05) H 12/26/23 15:36
Absolute Neuts (auto) 8.5 10^3/uL (1.4-6.5) H 12/26/23 15:36
Absolute Lymphs (auto) 0.4 10^3/uL (1.2-3.4) L 12/26/23 15:36
Absolute Monos (auto) 0.5 10^3/uL (0.1-0.6) 12/26/23 15:36
Absolute Basos (auto) 0.1 10^3/uL (0-0.2) 12/26/23 15:36
Total Counted 100 12/27/23 04:49
Immature Gran % 0.7 % (0-0.5) H 12/26/23 15:36
Neutrophils % 89.9 % (42.2-75.2) H 12/26/23 15:36
Lymphocytes % 3.9 % (20.5-51.1) L 12/26/23 15:36
Monocytes % 4.8 % (1.7-9.3) 12/26/23 15:36
Eosinophils % 0.1 % (0-6) 12/26/23 15:36
Basophils % 0.6 % (0-2) 12/26/23 15:36
Abs Neuts (Manual) 9.2 10^3/uL (1.4-6.5) H 12/27/23 04:49
Segmented Neutrophils 75 % (42-75) 12/27/23 04:49
Band Neutrophils 20 % (0-3) H 12/27/23 04:49
Lymphocytes (Manual) 3 % (20-51) L 12/27/23 04:49
PT 17.0 Sec (11.4-14.6) H 12/27/23 04:49
INR 1.40 12/27/23 04:49
Lactic Acid 1.9 mmol/L (0.7-2.0) 12/27/23 10:36
Ur Squamous Epith Cells 6-10 /LPF (Few) 12/26/23 19:08
Microbiology Results
Micro:
12/26/23 22:33 Blood Culture - Pending
Blood/Venous
12/26/23 19:08 Urine Culture - Pending
Urine
12/26/23 15:36 Influenza Types A & B (MIMA) - Final
Nasal Swab Negative for Influenza A & B, NAAT
Negative results must be combined with clinical observations
and patient history.
Nucleic Acid Amplification test (NAAT)performed on the
[employer] platform.
Imaging:
12/26/2023 CT abdomen/pelvis without contrast: There is stranding and edema tracking along the right kidney and proximal ureter concerning for pyelonephritis. No hydronephrosis or discrete renal calculi is noted. Colonic diverticulosis also seen,
but without evidence for acute diverticulitis. Please see full dictation for additional detail.
Assessment / Plan
Right-sided pyelonephritis
Normal white count with left shift
Lactic acidosis
IVETTE
HTN
Nephrolithiasis
Dyslipidemia
Depression
Diverticulosis
Osteoarthritis
Hx TIA
Ventral hernia
Recommendations:
Continue current empiric antibiotics (Zosyn). Dose has been adjusted for diminished renal function (current estimated creatinine clearance ~ 26).
Monitor pending blood cultures, along with pending urine culture.
Follow white count and temperature curve.
Further recommendations as additional data is returned.
[2023-12-27 11:58] LABS: Glucose - Point of Care 110 mg/dl (70-99)
--- NOTE | 2023-12-27 12:00 | CON.MD ---
Consultation - Medical
-
see dictated note
pt was on my list this for consult
saw her around 8am
remote hx of 'stone'- although no interventions/passages/etc
occ UTI
admitted with UTI/pyelo
ct reported right 'stent'- pt does not have a stent- she has a small calcification adjacent to the right ureter with no evid of hydro/intra-luminal position/etc
plan
treat for pyelo
no evid of hydro or stone (or stent)
recontact if pt fails to progress clinically
--- NOTE | 2023-12-27 12:05 | CM ---
CM following re: discharge planning.
Reviewed pt's chart, met with pt.
Pt is an 78 year old female, admitted with primary dx of Severe sepsis due to acute UTI due to R pyelonephritis.
Pt reports she lives with in a 2SH, 2 steps to enter has 4 supportive children. 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 No DME, VN or SNF history. Pt egressed her desire to return back home at discharge with family support.
PCP: Turner Mcmullen
pharmacy: [facility].
D/CV plan: home with anticipated no needs. to transport at discharge.
CM will follow with discharge plan updates as hospitalization progresses
--- NOTE | 2023-12-27 12:27 | PTCARENOTE ---
Addendum entered by Raissa Blood RN 12/27/23 12:29:
Troponin resulted critical- 0.111 from this AM- results reported to Dr. Anderson. Received orders for next troponin draw @ 1600.
Original Note:
Amio gtt of per orders- see flow sheet. Pt. assisted back into bed x1. Reported h/a and shoulder pain sitting in chair. Admin prn Tylenol- see MAR. IVF remain infusing- see MAR. Wean to RA and tolerating wean, SpO2 94%. Call carcamo remains w in
reach.
[2023-12-27] MEDS: SENOKOT-S 1 TABLET PO (12:34)
[2023-12-27] MEDS: COMPAZINE 5 MG IV (15:56)
[2023-12-27 16:06] LABS: Glycohemoglobin (HgbA1c) 5.7 % (4.0-5.6)
[2023-12-27 17:17] LABS: Troponin I 0.098 ng/ml
[2023-12-27 17:50] LABS: Glucose - Point of Care 102 mg/dl (70-99)
--- NOTE | 2023-12-27 20:39 | PTCARENOTE ---
assumed care of patient approx 1899.
Pt. downgraded to IMU LOC during dayshift.
Still exp. episodes of intractable Nausea. PRNs given.
Normal sinus w/o ectopy, normotensive, normothermic.
[2023-12-27] MEDS: PROZAC 40 MG PO (21:42)
[2023-12-27] MEDS: MAALOX 30 ML PO (21:43)
[2023-12-28] VITALS (12 sets, daily range): BP systolic 115–163; BP diastolic 78–96; BMI 34.9
--- NOTE | 2023-12-28 00:37 | PTCARENOTE ---
Pt. Nausea has improved, PRNs given, offers no further complaints.
[2023-12-28] MEDS: HEPARIN 5000 UNITS SC ×4 (01:03→23:55)
[2023-12-28] MEDS: COMPAZINE 5 MG IV (01:03)
[2023-12-28] MEDS: ZOSYN 50 IV ×5 (01:03→23:55)
[2023-12-28] MEDS: NSS 1000 IV ×2 (02:15→13:57)
--- NOTE | 2023-12-28 04:42 | PTCARENOTE ---
Pt. cont. removing monitoring, reeducated the importance of keeping life sustaining monitoring equipment attached.
[2023-12-28 07:09] LABS: Hematocrit 34.9 % (37.0-47.0); Hemoglobin 11.7 g/dL (12.0-16.0); Mean Corp Hgb Conc. 33.5 g/dL (33.0-37.0); Mean Corpuscular Hgb 30.2 pg (27.0-31.0); Mean Corpuscular Volume 90.2 fL (81.0-99.0); Mean Platelet Volume 11.6 fL (7.4-10.4); Platelet Count 180 10^3/uL (130-400); Red Blood Cell Count 3.87 10^6/uL (4.20-5.40); Red Cell Dist. Width 14.6 % (11.5-14.5); White Blood Cell Count 8.2 10^3/uL (4.8-10.8)
[2023-12-28 07:14] LABS: Blood Urea Nitrogen 36 mg/dl (7-17); Calcium 8.7 mg/dl (8.4-10.2); Carbon Dioxide 19 mmol/L (22-30); Chloride 107 mmol/L (98-107); Estimated Creatinine Clearance 32 ml/min; Glucose 102 mg/dl (70-99); Magnesium 2.2 mg/dl (1.6-2.3); Phosphorus 3.1 mg/dl (2.5-4.5); Potassium 3.5 mmol/L (3.5-5.1); Sodium 136 mmol/L (135-145)
[2023-12-28] MEDS: CARDIZEM CD 120 MG PO (07:37)
[2023-12-28 07:58] LABS: Segmented Neutrophils 72 % (42-75)
[2023-12-28 07:59] LABS: Anisocytosis Slight; Band Neutrophils 14 % (0-3); Hypochromasia Slight; Lymphocytes 12 % (20-51); Monocytes 2 % (2-9); Normal RBC Morphology No; Ovalocytes Slight; Platelets Checked Yes; Total Cells Counted 100
[2023-12-28 08:26] LABS: Glucose - Point of Care 94 mg/dl (70-99)
--- NOTE | 2023-12-28 09:09 | W.PN.HOSP.TC ---
Addendum entered and electronically signed by Johnathan Chapa MD 12/28/23 09:32:
I saw and evaluated the patient. I reviewed the resident�s note and agree with findings and plan as documented in the resident�s note.
Pt denies CP/SOB/abd pain. Reports diarrhea.
Gen: NAD, AAOx3.
Eyes: EOMI, PERRLA, no scleral icterus.
Neck: supple.
CV: remains RRR, +S1/S2, no m/r/g.
Resp: remains CTAB anteriorly, no rales, wheezes, or rhonchi.
Abd: remains +BS, soft, NT, ND
Skin: No rashes. No LE edema.
Neuro: CN 2-12 intact, non-focal.
Psych: Normal mood and affect.
CXR: clear lungs
CT A/P: There is stranding and edema tracking along the right kidney, tracking along the proximal ureter concerning for pyelonephritis. No hydronephrosis and no discrete renal calculus is visualized. Colonic diverticulosis without evidence of acute
diverticulitis.
Echo: Normal left ventricular size and systolic function. No regional wall motion
abnormalities are seen. LV ejection fraction is 55-60% by Garcia's method of
discs. Mild concentric left ventricular hypertrophy. Normal diastolic function.
Structurally normal mitral valve. Mitral valve opens normally. Mild mitral
regurgitation.
Structurally normal tricuspid valve. Tricuspid valve opens normally. Mild to
moderate tricuspid regurgitation. Estimated pulmonary artery pressure of 39
mmHg. Assuming a right atrial pressure of 8 mmHg.
Since echo 03/2020, there is no significant change.
Severe sepsis due to acute UTI due to R pyelonephritis:
-cont IVFs
-cont Zosyn as per ID. Suspect antibiotic associated diarrhea but will check C diff.
-follow UCx/BCxs
-urology saw in c/s, pt does not have a ureteral stent
Acute SVT:
-s/p cardioversion in ER followed by Amio gtt
-discussed with cardiology, likely AVNRT
-amio stopped 12/27/23, cardizem restarted
-use vagal maneuvers or adenosine if recurs
-echo above, unchanged from 2020
IVETTE:
-true baseline Cr not clear as last Cr in [facility] over 5 years ago
-likely due to sepsis
-cont to trend with IVFs
Hyponatremia, mild, trend
Obesity due to excess calories
Total time spent on today's encounter was 51 minutes which included time spent in counseling the patient/family regarding diagnosis and treatment plan as listed above, goals of care, and symptom management. Case was discussed with nursing staff,
specialists, and care coordinators/case management. All labs and imaging personally reviewed by me. Remainder the time spent in detailed review of previous records, lab data, imaging, and other medical provider documentation.
Original Note:
Today's Communication/Plan
-
- Transfer to tele.
- Continue Zosyn and IV hydration.
- Ondansetron and prochlorperazine for nausea.
Assessment / Plan
Assessment / Plan
Assessment
The patient is an 78 yo woman with PMH significant for HTN, HLD, TIA, who presents to the ED due to not feeling well for 3 days, associated with nausea, vomiting, and urinary complaints that started today. She has not been able to take her BP
medication Diltiazem for 3 days due to n/v. She's had little PO intake as well due to symptoms. Of note, she has history of septic shock from UTI/Pyelo and possibly kidney stones but she does not recall stents being placed at that time.
Impression and plan
Sepsis secondary to acute pyelonephritis
- Fever, tachy, lactic acidosis associated with SVT and hypotension.
- normal WBC with leftward shift a/w lactic acidosis, tachyarrhythmia, and abnormal UA concerning for UTI
- CT a/p w stranding and edema tracking along the right kidney, tracking along the proximal ureter concerning for pyelonephritis.
- ICU admission, high risk for worsening hemodynamic instability requiring pressor support; transfer to tele.
- IV Rocephin in ED, will continue abx w IV Zosyn
- blood cx with no growth so far, urine cx pending
- Oracle Manager consultation
- s/p 2.5L IV sepsis protocol dosing, continue NS 125 mL per hour and bolus as needed
Supraventricular tachycardia
- Was sustained despite IV Lopressor, Cardioversion in ED, and s/p oral Diltazem 60 mg, likely driven by sepsis and volume depletion
- Cardiology following.
- Was on Amio gtt; now cmetontrolled on diltiazem PO.
- Troponin peaked at 0.111
- Echocardiogram unremarkable.
Nausea and vomiting
- Continue ondansetron and prochlorperazine.
- Better today on the latter.
Acute diarrhea
- Likely antibiotics-associated.
- Check c. diff.
Hyponatremia, resolved
- repeat lab monitoring s/p IVF
Acute kidney injury
- Creatinine 1.9 (last creatinine was 0.8 in 2019)
- IVF
- renally dose meds, repeat labs in am
- Down-trending now.
Hyperlipidemia
- statin
Essential hypertension
- Continue diltiazem
VTE prophylaxis
- Heparin SC.
Code status
- Full.
Anticipated Discharge: 24 - 48 hours
Subjective/Interval History
-
Date of Service: December 28, 2023
Objective Data
-
Labs:
Laboratory Results
12/28/23
05:53
WBC 8.2
Hgb 11.7 L
Hct 34.9 L
Plt Count 180
Sodium 136
Potassium 3.5
Chloride 107
Carbon Dioxide 19 L
BUN 36 H
Creatinine 1.6 H
Glucose 102 H
Calcium 8.7
Vital Signs:
Vital Signs
Temp Pulse Resp BP Pulse Ox
98.4 F 92 26 152/78 93
12/28/23 06:12 12/28/23 07:37 12/28/23 06:12 12/28/23 07:37 12/28/23 05:00
I&O
12/27/23 12/28/23 12/29/23
06:59 06:59 06:59
Intake Total 1441.5 / 1583.2 4330.1 / 4330.1
Output Total 0 / 0 950 / 950
Balance 1441.5 / 1583.2 3380.1 / 3380.1
Review of Systems
-
History Source: Patient
All other systems: Reviewed and negative
Physical Exam
-
General: No Apparent Distress and Comfortable
HEENT: Normocephalic, Atraumatic, Moist Mucous Membranes and Anicteric
Respiratory: Clear to Auscultation and Non Labored Respirations
Cardiac: Regular Rhythm and S1/S2
GI: Soft, Nontender and Nondistended
Genito-urinary: No Costovertebral Tender
Musculoskeletal: No Clubbing, No Cyanosis and No Edema
Skin: Warm, Dry and IV Access / Catheter Site
Neuro: AO x 3 and Nonfocal/Grossly Intact
Hematologic / Lymphatic: No Lymphadenopathy
Psych: Calm
--- NOTE | 2023-12-28 11:39 | W.PN.CD ---
Today's Communication / Plan
-
Continue Dilt
Cardiology will sign off. She may see us in the office if symptoms develops
Impression / Plan
-
BACKGROUND 78F with HTN, HLD, prior TIA, and pre-diabetes presented with nausea/vomiting. She had SVT and required cardioversion in the ER.
E Coli bacteremia with UTI
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
-Cardioverted in ED (12/26/2023) & started on amiodarone gtt
- Back on her diltiazem 120mg daily only short runs of AT/SVT (3-10 beats x4-5) has been seen, no associated symptoms
-Echo with good LV/RV, mild MR, mild-mod TR
IVETTE in the setting of UTI
HTN
HLD
Prior TIA
Pre-diabetes
Subjective:
No CP or dyspnea. No palps
Physical Exam
Vital Signs/Labs
Vital Signs
Temp Pulse Resp BP Pulse Ox
98.5 F 78 25 155/81 94
12/28/23 08:00 12/28/23 10:00 12/28/23 10:00 12/28/23 10:00 12/28/23 08:00
12/27/23 12/28/23 12/29/23
06:59 06:59 06:59
Actual Weight 94.71 kg 95 kg
12/28/23 05:53
12/28/23 05:53
PT 17.0 Sec (11.4-14.6) H 12/27/23 04:49
INR 1.40 12/27/23 04:49
APTT 41.1 Sec (23.4-35.0) H 12/27/23 04:49
Magnesium 2.2 mg/dl (1.6-2.3) 12/28/23 05:53
LAB Results
12/26/23 12/27/23 12/27/23
23:36 04:49 10:36
Troponin I 0.046 H* 0.097 H* D 0.111 H*
12/27/23
16:19
Troponin I 0.098 H*
Physical Exam
Constitutional: No acute distress
EENT: Anicteric
Cardiovascular: Rhythm & rate is regular and Pedal edema is absent
Respiratory: Respiratory effort normal and Lungs clear to auscul.
GI: Soft and Distention absent
Neuro/Psych: AO x 3
Data Reviewed
-
Date of Service: December 28, 2023
[2023-12-28 11:43] LABS: Glucose - Point of Care 169 mg/dl (70-99)
[2023-12-28] MEDS: TYLENOL 650 MG PO (13:44)
--- NOTE | 2023-12-28 14:20 | W.PN.ID1 ---
Date of Service
Date of Service: December 28, 2023
Today's Communication
Continue antibiotics.
Assessment / Plan
Right-sided pyelonephritis
Normal white count with left shift
Lactic acidosis
IVETTE
HTN
Nephrolithiasis
Dyslipidemia
Depression
Diverticulosis
Osteoarthritis
Hx TIA
Ventral hernia
Recommendations:
Blood cultures remain negative, but urine culture reveals growth of E. coli (sensitivities pending)
Continue current empiric antibiotics (Zosyn).
Monitor pending blood cultures, along with pending urine culture.
Follow white count and temperature curve.
Further recommendations as additional data is returned.
����������������������������������������������������������
Chief Complaint
-: UTI
Subjective / Review of Systems
Patient seen and examined. Reports feeling about the same as yesterday, although nausea has improved.
Vital Signs / Physical Exam
Vital Signs
Vital Signs
Temp Pulse Resp BP Pulse Ox
97.6 F 79 16 163/79 96
12/28/23 14:05 12/28/23 14:05 12/28/23 14:05 12/28/23 14:00 12/28/23 14:05
Physical Exam
Constitutional: No Acute Distress, Comfortable and Non-toxic
Eyes: Sclera Anicteric
Cardiovascular: S1/S2; Negative S3/S4
Pulmonary: Non Labored
Gastrointestinal: Soft, Non Tender and Non Distended
Genito-Urinary: Negative CVA Tenderness
Extremities: Negative Edema, Cyanosis or Erythema
Neurological: Awake and Alert
Psychological: Calm
Objective Data
Lab Data
Lab Results
12/28/23 05:53
12/28/23 05:53
PT 17.0 Sec (11.4-14.6) H 12/27/23 04:49
INR 1.40 12/27/23 04:49
APTT 41.1 Sec (23.4-35.0) H 12/27/23 04:49
Estimated Creat Clear 32 ml/min 12/28/23 05:53
Lactic Acid 1.9 mmol/L (0.7-2.0) 12/27/23 10:36
Total Bilirubin 1.0 mg/dl (0.2-1.3) 12/26/23 15:36
AST 24 U/L (14-36) 12/26/23 15:36
ALT 11 U/L (0-35) 12/26/23 15:36
Alkaline Phosphatase 97 U/L (38-126) 12/26/23 15:36
Most recent labs reviewed.
Micro Results:
12/28/23 11:29 C. difficile GDH Antigen & Toxins - Final
Feces/Stool Negative for toxigenic C.difficile
12/26/23 19:08 Urine Culture - Preliminary
Urine Escherichia coli
12/26/23 22:33 Blood Culture - Preliminary
Blood/Venous No Growth in 24 hours- Final report to follow
12/26/23 15:36 Influenza Types A & B (MIMA) - Final
Nasal Swab Negative for Influenza A & B, NAAT
Negative results must be combined with clinical observations
and patient history.
Nucleic Acid Amplification test (NAAT)performed on the
[employer] platform.
Imaging:
12/26/2023 CT abdomen/pelvis without contrast: There is stranding and edema tracking along the right kidney and proximal ureter concerning for pyelonephritis. No hydronephrosis or discrete renal calculi is noted. Colonic diverticulosis also seen,
but without evidence for acute diverticulitis. Please see full dictation for additional detail.
[2023-12-28 17:57] LABS: Glucose - Point of Care 97 mg/dl (70-99)
--- NOTE | 2023-12-28 20:00 | PTCARENOTE ---
rec`d pt at 1900. AAOx3. SR on monitor. PACs. no edema. POX 96% RA. exp wheeze. pt had 2 Bms. liquid diarrhea. along with Nausea. PRN zofran given. OOBx1 assist to commode. pt tends to be incontinent. pt is very sore when wiping, pt q2h turns to
stay off behind. barrier cream applied as well. NS at 125/hr. RN asked if ENGINE BUILDER still wants fluids going since pt is on liquid diet. ENGINE BUILDER has no further orders. call carcamo in reach, safe environment maintained.
[2023-12-28] MEDS: NSS IV (20:09)
[2023-12-28] MEDS: ZOFRAN 4 MG IV (20:26)
[2023-12-28] MEDS: PROZAC 40 MG PO (20:38)
[2023-12-29] VITALS (8 sets, daily range): BP systolic 160–177; BP diastolic 76–115; BMI 35.1
--- NOTE | 2023-12-29 | PTCARENOTE ---
pt reassessed. no changes in pt assessment. rectal trumpet added for liquid BMs.
--- NOTE | 2023-12-29 02:55 | DOWNTIME ---
There was a [employer] Client Erp Project Manager Downtime on 12/29/2023 from 0100 to 12/29/2023 at 0252. Downtime documentation of patient's care, including medication administrations, has been reconciled in the electronic record per guidelines. Refer to the
patient's paper chart under the miscellaneous tab to see printed paper medication records and downtime forms.
[2023-12-29] MEDS: NSS 1000 IV ×3 (03:30→18:15)
[2023-12-29] MEDS: ZOSYN 50 IV (05:54)
[2023-12-29 05:57] LABS: % Basophils 0.4 % (0-2); % Eosinophils 1.5 % (0-6); % Immature Granulocytes 0.6 % (0-0.5); % Lymphocytes 7.2 % (20.5-51.1); % Monocytes 13.7 % (1.7-9.3); % Neutrophils 76.6 % (42.2-75.2); Absolute Eosinophils 0.1 10^3/uL (0-0.7); Absolute Immature Granulocytes 0.1 10^3/uL (0-0.05); Absolute Lymphocytes 0.6 10^3/uL (1.2-3.4); Absolute Monocytes 1.1 10^3/uL (0.1-0.6); Absolute Neutrophils 5.9 10^3/uL (1.4-6.5); Hematocrit 32.9 % (37.0-47.0); Hemoglobin 11.2 g/dL (12.0-16.0); Mean Corpuscular Hgb 30.3 pg (27.0-31.0); Mean Corpuscular Volume 88.9 fL (81.0-99.0); Mean Platelet Volume 11.3 fL (7.4-10.4); Nucleated Red Blood Cells % 0 %; Platelet Count 196 10^3/uL (130-400); Red Cell Dist. Width 14.3 % (11.5-14.5); White Blood Cell Count 7.8 10^3/uL (4.8-10.8)
[2023-12-29 06:10] LABS: Blood Urea Nitrogen 25 mg/dl (7-17); Calcium 8.6 mg/dl (8.4-10.2); Carbon Dioxide 18 mmol/L (22-30); Chloride 110 mmol/L (98-107); Estimated Creatinine Clearance 39 ml/min; Glucose 103 mg/dl (70-99); Potassium 3.3 mmol/L (3.5-5.1); Sodium 136 mmol/L (135-145); eGFR 41.57
[2023-12-29] MEDS: KCL 40 MEQ PO (06:28)
[2023-12-29] MEDS: CARDIZEM CD 120 MG PO (07:59)
[2023-12-29] MEDS: HEPARIN 5000 UNITS SC ×3 (07:59→23:53)
--- NOTE | 2023-12-29 08:35 | W.PN.HOSP.TC ---
Addendum entered and electronically signed by Johnathan Chapa MD 12/29/23 09:03:
I saw and evaluated the patient. I reviewed the resident�s note and agree with findings and plan as documented in the resident�s note.
Pt denies CP/SOB/abd pain. Reports diarrhea persists, now requiring rectal tube.
Gen: NAD, AAOx3.
Eyes: EOMI, PERRLA, no scleral icterus.
Neck: supple.
CV: continues to remain RRR, +S1/S2, no m/r/g.
Resp: continues to remain CTAB anteriorly, no rales, wheezes, or rhonchi.
Abd: continues to remain +BS, soft, NT, ND
Skin: No rashes. No LE edema.
Neuro: CN 2-12 intact, non-focal.
Psych: Normal mood and affect.
CXR: clear lungs
CT A/P: There is stranding and edema tracking along the right kidney, tracking along the proximal ureter concerning for pyelonephritis. No hydronephrosis and no discrete renal calculus is visualized. Colonic diverticulosis without evidence of acute
diverticulitis.
Echo: Normal left ventricular size and systolic function. No regional wall motion
abnormalities are seen. LV ejection fraction is 55-60% by Garcia's method of
discs. Mild concentric left ventricular hypertrophy. Normal diastolic function.
Structurally normal mitral valve. Mitral valve opens normally. Mild mitral
regurgitation.
Structurally normal tricuspid valve. Tricuspid valve opens normally. Mild to
moderate tricuspid regurgitation. Estimated pulmonary artery pressure of 39
mmHg. Assuming a right atrial pressure of 8 mmHg.
Since echo 03/2020, there is no significant change.
Severe sepsis due to acute E coli UTI due to R pyelonephritis:
-cont IVFs
-cont Zosyn as per ID. Suspect antibiotic associated diarrhea (C diff NEG)
-follow UCx/BCxs. Hopefully can narrow abx today if sensitivities result
-urology saw in c/s, pt does not have a ureteral stent
Acute SVT:
-s/p cardioversion in ER followed by Amio gtt
-discussed with cardiology, likely AVNRT
-amio stopped 12/27/23, cardizem restarted
-use vagal maneuvers or adenosine if recurs
-echo above, unchanged from 2019
IVETTE:
-true baseline Cr not clear as last Cr in [facility] over 5 years ago
-likely due to sepsis
-cont to trend with IVFs
-currently with non-AG met acidosis likely due to diarrhea
Hyponatremia, resolved
Hypokalemia: PO K
Obesity due to excess calories
Total time spent on today's encounter was 50 minutes which included time spent in counseling the patient/family regarding diagnosis and treatment plan as listed above, goals of care, and symptom management. Case was discussed with nursing staff,
specialists, and care coordinators/case management. All labs and imaging personally reviewed by me. Remainder the time spent in detailed review of previous records, lab data, imaging, and other medical provider documentation.
Original Note:
Today's Communication/Plan
-
- Can narrow antibiotic coverage today, pending sensitivity studies.
- IV hydration.
- Ondansetron and prochlorperazine for nausea.
Assessment / Plan
Assessment / Plan
Assessment
The patient is an 78 yo woman with PMH significant for HTN, HLD, TIA, who presents to the ED due to not feeling well for 3 days, associated with nausea, vomiting, and urinary complaints that started today. She has not been able to take her BP
medication Diltiazem for 3 days due to n/v. She's had little PO intake as well due to symptoms. Of note, she has history of septic shock from UTI/Pyelo and possibly kidney stones but she does not recall stents being placed at that time.
Impression and plan
Sepsis secondary to acute pyelonephritis
- Fever, tachy, lactic acidosis associated with SVT and hypotension.
- normal WBC with leftward shift a/w lactic acidosis, tachyarrhythmia, and abnormal UA concerning for UTI
- CT a/p w stranding and edema tracking along the right kidney, tracking along the proximal ureter concerning for pyelonephritis.
- ICU admission, high risk for worsening hemodynamic instability requiring pressor support; transfer to [facility].
- IV Rocephin in ED, will continue abx w IV Zosyn
- blood cx with no growth so far, urine cx e. coli; pending sensitivities.
- Stem Sizer consultation
- s/p 2.5L IV sepsis protocol dosing, continue NS 125 mL per hour and bolus as needed
Supraventricular tachycardia
- Was sustained despite IV Lopressor, Cardioversion in ED, and s/p oral Diltazem 60 mg, likely driven by sepsis and volume depletion
- Cardiology following.
- Was on Amio gtt; now controlled on diltiazem PO.
- Troponin peaked at 0.111
- Echocardiogram unremarkable.
Hypokalemia
- Replete as needed
- Follow BMP.
Hyponatremia, resolved
- Monitor BMP.
Nausea and vomiting
- Continue ondansetron and prochlorperazine.
- Better today on the latter.
Acute diarrhea
- Likely antibiotics-associated.
- C. diff negative.
Hyponatremia, resolved
- repeat lab monitoring s/p IVF
Acute kidney injury
- Creatinine 1.9 (last creatinine was 0.8 in 2018)
- IVF
- renally dose meds, repeat labs in am
- Down-trending now.
Hyperlipidemia
- statin
Essential hypertension
- Continue diltiazem
Obesity due to excess calorie intake
VTE prophylaxis
- Heparin SC.
Code status
- Full.
Anticipated Discharge: 24 - 48 hours
Subjective/Interval History
-
Date of Service: December 29, 2023
Objective Data
-
Labs:
Laboratory Results
12/29/23
05:40
WBC 7.8
Hgb 11.2 L
Hct 32.9 L
Plt Count 196
Sodium 136
Potassium 3.3 L
Chloride 110 H
Carbon Dioxide 18 L
BUN 25 H
Creatinine 1.3 H
Glucose 103 H
Calcium 8.6
Vital Signs:
Vital Signs
Temp Pulse Resp BP Pulse Ox
97.9 F 77 24 177/100 96
12/29/23 07:39 12/29/23 08:00 12/29/23 08:00 12/29/23 07:59 12/28/23 20:00
I&O
12/28/23 12/29/23 12/30/23
06:59 06:59 06:59
Intake Total 4330.1 / 4330.1 2980 / 2980
Output Total 950 / 950 900 / 900
Balance 3380.1 / 3380.1 2079 / 2079
Review of Systems
-
History Source: Patient
All other systems: Reviewed and negative
Physical Exam
-
General: No Apparent Distress and Comfortable
HEENT: Normocephalic, Atraumatic, Moist Mucous Membranes and Anicteric
Respiratory: Clear to Auscultation and Non Labored Respirations
Cardiac: Regular Rhythm and S1/S2
GI: Soft, Nontender and Nondistended
Genito-urinary: No Costovertebral Tender
Musculoskeletal: No Clubbing, No Cyanosis and No Edema
Skin: Warm, Dry and IV Access / Catheter Site
Neuro: AO x 3 and Nonfocal/Grossly Intact
Hematologic / Lymphatic: No Lymphadenopathy
Psych: Calm
--- NOTE | 2023-12-29 08:42 | PTCARENOTE ---
recd 0715 handoff at bedside, in good spirits, 'tired'. aware of plans for the day, VS noted, BP elevated scheduled cardizem dose given. awaiting tele bed. notes some GI distress, relieved with rectal trumpet, purewick in place. IV fluids
continue as ordered. tolerated full liquid diet but appetite fair.
--- NOTE | 2023-12-29 09:31 | W.PN.ID1 ---
Date of Service
Date of Service: December 29, 2023
Today's Communication
Narrow antibiotics to cefazolin.
Assessment / Plan
Right-sided pyelonephritis
- urine cultures with E. coli (coburn-sensitive)
Normal white count with left shift
Lactic acidosis
IVETTE
HTN
Nephrolithiasis
Dyslipidemia
Depression
Diverticulosis
Osteoarthritis
Hx TIA
Ventral hernia
Recommendations:
E. coli sensitivities reviewed and isolate is pansensitive.
Narrow to cefazolin 2 g IV every 8 hours
Follow white count and temperature curve.
����������������������������������������������������������
Chief Complaint
-: UTI
Subjective / Review of Systems
Review of Systems: No Fever, No Chills, Diarrhea and No Dysuria
Vital Signs / Physical Exam
Vital Signs
Vital Signs
Temp Pulse Resp BP Pulse Ox
97.9 F 77 24 177/100 97
12/29/23 07:39 12/29/23 08:00 12/29/23 08:00 12/29/23 07:59 12/29/23 08:00
Physical Exam
Constitutional: No Acute Distress, Comfortable and Non-toxic
Head: Normocephalic
Eyes: Sclera Anicteric
Cardiovascular: S1/S2; Negative S3/S4
Pulmonary: Clear and Non Labored; Negative Wheezes, Rales or Rhonchi
Gastrointestinal: Soft, Non Tender, Non Distended and Other (Rectal tube in place with liquid stool)
Genito-Urinary: Negative CVA Tenderness
Extremities: Negative Edema, Cyanosis or Erythema
Neurological: Awake and Alert
Psychological: Calm
Objective Data
Lab Data
Lab Results
12/29/23 05:40
12/29/23 05:40
PT 17.0 Sec (11.4-14.6) H 12/27/23 04:49
INR 1.40 12/27/23 04:49
APTT 41.1 Sec (23.4-35.0) H 12/27/23 04:49
Estimated Creat Clear 39 ml/min 12/29/23 05:40
Lactic Acid 1.9 mmol/L (0.7-2.0) 12/27/23 10:36
Total Bilirubin 1.0 mg/dl (0.2-1.3) 12/26/23 15:36
AST 24 U/L (14-36) 12/26/23 15:36
ALT 11 U/L (0-35) 12/26/23 15:36
Alkaline Phosphatase 97 U/L (38-126) 12/26/23 15:36
Most recent labs reviewed.
Micro Results:
12/26/23 19:08 Urine Culture - Final
Urine Escherichia coli
12/26/23 22:33 Blood Culture - Preliminary
Blood/Venous No Growth in 48 hours- Final report to follow
12/28/23 11:29 C. difficile GDH Antigen & Toxins - Final
Feces/Stool Negative for toxigenic C.difficile
12/26/23 15:36 Influenza Types A & B (MIMA) - Final
Nasal Swab Negative for Influenza A & B, NAAT
Negative results must be combined with clinical observations
and patient history.
Nucleic Acid Amplification test (NAAT)performed on the
[employer] platform.
Imaging:
12/26/2023 CT abdomen/pelvis without contrast: There is stranding and edema tracking along the right kidney and proximal ureter concerning for pyelonephritis. No hydronephrosis or discrete renal calculi is noted. Colonic diverticulosis also seen,
but without evidence for acute diverticulitis. Please see full dictation for additional detail.
[2023-12-29] MEDS: ANCEF 10 IV ×2 (10:41→18:10)
[2023-12-29] MEDS: VISBIOME 2 CAP PO (10:41)
[2023-12-29] MEDS: IMODIUM 2 MG PO ×2 (10:42→18:13)
[2023-12-29] MEDS: APRESOLINE 25 MG PO ×3 (12:00→22:00)
--- NOTE | 2023-12-29 12:36 | PTCARENOTE ---
pt c/o automatic BP measurements, 'Can I refuse to have it done?' Manual BP obtained Right upper, see filed VS, hydralazine given per MD order, awaiting bed on 2N. less stool urgency now, family visiting. otherwise in good spirits. refused lunch
at this time, glucose not obtained.
--- NOTE | 2023-12-29 13:53 | CHAP ---
Msgr. Bear Navarro of [facility] in [place] anointed Melanie, and gave her Holy Communion.
--- NOTE | 2023-12-29 14:50 | TRANSFER ---
transported via bed to 2120 with all belongings, in good spirits, settled in new room. manual cuff BP obtained prior to transfer.
[2023-12-29] MEDS: ZOFRAN 4 MG IV (15:13)
[2023-12-29] MEDS: TYLENOL 650 MG PO (15:13)
--- NOTE | 2023-12-29 15:44 | PTCARENOTE ---
Received patient from ICU into room 2120. Patient refusing automatic BP, manual taken by this RN 158/98, HR NSR in low 80s on tele monitor. Patient c/o of HILLIARD rated 3/10, nausea with dry heaving; scheduled hydralazine, heparin, PRN tylenol and zofran
administered - see JUL. Patient assisted onto commode for mod urination, barrier cream on buttocks for irritation while wiping. NSS infusing through L hand at 125 ml/hr. Patient oriented to room and call carcamo, states no concerns at this time.
[2023-12-29 16:48] LABS: Glucose - Point of Care 105 mg/dl (70-99)
[2023-12-29] MEDS: COMPAZINE 5 MG IV (18:13)
[2023-12-29 21:35] LABS: Glucose - Point of Care 106 mg/dl (70-99)
[2023-12-29] MEDS: PROZAC 40 MG PO (22:00)
[2023-12-30] MEDS: ANCEF 10 IV ×2 (01:51→10:08)
[2023-12-30] MEDS: NSS 1000 IV ×2 (01:59→10:08)
[2023-12-30] MEDS: IMODIUM 2 MG PO (02:18)
[2023-12-30 03:05] VITALS: BP 166/82
[2023-12-30 06:00] VITALS: BMI 34.9
[2023-12-30 08:05] LABS: Glucose - Point of Care 99 mg/dl (70-99)
[2023-12-30] MEDS: HEPARIN 5000 UNITS SC (08:11)
[2023-12-30] MEDS: VISBIOME 2 CAP PO (08:13)
[2023-12-30] MEDS: CARDIZEM CD 120 MG PO (08:15)
[2023-12-30] MEDS: APRESOLINE 25 MG PO (08:15)
[2023-12-30 08:20] VITALS: BP 160/90
--- NOTE | 2023-12-30 09:25 | W.PN.HOSP.TC ---
Addendum entered and electronically signed by Johnathan Chaap MD 12/30/23 13:17:
Total time spent on d/c = 34 min. This included today's physical exam, progress note, review of laboratory and diagnostic data, preparation of discharge documents and prescriptions, and discussions about the pt's hospital course and discharge plan
with the patient and other emergency medicine medical director involved in the patient's care.
Addendum entered and electronically signed by Johnathan Chapa MD 12/30/23 09:44:
I saw and evaluated the patient. I reviewed the resident�s note and agree with findings and plan as documented in the resident�s note.
Pt denies CP/SOB/abd pain. Diarrhea has improved
Gen: NAD, AAOx3.
Eyes: EOMI, PERRLA, no scleral icterus.
Neck: supple.
CV: RRR, +S1/S2, no m/r/g.
Resp: CTAB anteriorly, no rales, wheezes, or rhonchi.
Abd: +BS, soft, NT, ND
Skin: No rashes. No LE edema.
Neuro: CN 2-12 intact, non-focal.
Psych: Normal mood and affect.
CXR: clear lungs
CT A/P: There is stranding and edema tracking along the right kidney, tracking along the proximal ureter concerning for pyelonephritis. No hydronephrosis and no discrete renal calculus is visualized. Colonic diverticulosis without evidence of acute
diverticulitis.
Echo: Normal left ventricular size and systolic function. No regional wall motion
abnormalities are seen. LV ejection fraction is 55-60% by Garcia's method of
discs. Mild concentric left ventricular hypertrophy. Normal diastolic function.
Structurally normal mitral valve. Mitral valve opens normally. Mild mitral
regurgitation.
Structurally normal tricuspid valve. Tricuspid valve opens normally. Mild to
moderate tricuspid regurgitation. Estimated pulmonary artery pressure of 39
mmHg. Assuming a right atrial pressure of 8 mmHg.
Since echo 03/2020, there is no significant change.
Severe sepsis due to acute E coli UTI due to R pyelonephritis:
-cont IVFs
-cont Ancef, likely will switch to PO abx today
-urology saw in c/s, pt does not have a ureteral stent
Acute SVT:
-s/p cardioversion in ER followed by Amio gtt
-discussed with cardiology, likely AVNRT
-amio stopped 12/27/23, cardizem restarted
-use vagal maneuvers or adenosine if recurs
-echo above, unchanged from 2020
IVETTE:
-true baseline Cr not clear as last Cr in [facility] over 5 years ago
-likely due to sepsis
-cont to trend Cr with IVFs
-currently with non-AG met acidosis likely due to diarrhea
-AM labs still pending
Hyponatremia, resolved
Hypokalemia: follow AM K
Obesity due to excess calories
Original Note:
Today's Communication/Plan
-
Transfer to Med/Surg
Continue cefazolin
Labs pending
Consider advancing diet
Check potassium and creatinine level
Consider bladder scan
Assessment / Plan
Assessment / Plan
IMPRESSION: 78 yo woman with PMH significant for HTN, nephrolithiasis, TIA presenting with pyelonephritis.
PLAN:
Sepsis secondary to acute pyelonephritis
- Fever, tachy, lactic acidosis associated with SVT and hypotension. Lactic acid returned to normal, not febrile or tachycardic today.
- normal WBC with leftward shift a/w lactic acidosis, tachyarrhythmia, and abnormal UA concerning for UTI
- CT a/p w stranding and edema tracking along the right kidney, tracking along the proximal ureter concerning for pyelonephritis.
- IV Rocephin in ED, initially started on IV Zosyn
- blood cx with no growth, urine cx e. coli; pansensitive. Switch IV Zosyn to cefazolin 2 g TID.
- Diet currently full liquids, consider advance diet
Supraventricular tachycardia
- Was sustained despite IV Lopressor, Cardioversion in ED, and s/p oral Diltazem 60 mg, likely driven by sepsis and volume depletion
- Cardiology signed off.
- Now controlled on diltiazem PO.
- Transfer to Med/Surg
Hypokalemia
- Potassium level pending
Hyponatremia
- Now resolved
Nausea and vomiting
- Continue ondansetron and prochlorperazine
Urinary retention
- I/O: 3340/750
- Consider bladder scan
Acute diarrhea
- Likely antibiotics-associated.
- C. diff negative.
- One Loose stool since yesterday
- Continue loperamide as needed
Acute kidney injury
- Likely in the setting of UTI/pyelonephritis
- Creatinine downtrending, creatinine today pending
- renally dose meds
Essential hypertension
- Continue diltiazem
History of hiatal hernia
- Mild epigastric tenderness
- Abdomen CT: Fat-containing umbilical hernia.
DVT prophylaxis Heparin SC.
Full code
Anticipated Discharge: 24 - 48 hours
Subjective/Interval History
-
Date of Service: December 30, 2023
Objective Data
-
Labs:
Laboratory Results
12/30/23
08:28
WBC Pending
Hgb Pending
Hct Pending
Plt Count Pending
Sodium Pending
Potassium Pending
Chloride Pending
Carbon Dioxide Pending
BUN Pending
Creatinine Pending
Glucose Pending
Calcium Pending
Vital Signs:
Vital Signs
Temp Pulse Resp BP Pulse Ox
97.2 F 77 18 160/90 97
12/30/23 07:00 12/30/23 08:15 12/30/23 07:00 12/30/23 08:15 12/30/23 07:00
I&O
12/29/23 12/30/23 12/31/23
06:59 06:59 06:59
Intake Total 2980 / 2980 3830 / 3830
Output Total 900 / 900 1250 / 1250
Balance 2079 2580 / 2580
Review of Systems
-
History Source: Patient
All other systems: Reviewed and negative
Physical Exam
-
General: No Apparent Distress and Comfortable
HEENT: Normocephalic, Atraumatic, Moist Mucous Membranes and Anicteric
Respiratory: Clear to Auscultation and Non Labored Respirations
Cardiac: Regular Rhythm and S1/S2
GI: Soft, Nondistended and Tender (Mild epigastric tenderness, no rebound)
Genito-urinary: No Costovertebral Tender
Musculoskeletal: No Clubbing, No Cyanosis and No Edema
Skin: Warm, Dry and IV Access / Catheter Site
Neuro: AO x 3 and Nonfocal/Grossly Intact
Hematologic / Lymphatic: No Lymphadenopathy
Psych: Calm
--- NOTE | 2023-12-30 09:47 | W.DCSUMMARY ---
Addendum entered and electronically signed by Johnathan Chapa MD 12/31/23 08:21:
Correction: 78 y/o F
Read, reviewed, and agree. See same day progress note for additional details. s
Original Note:
Discharge Summary
Discharge Data
Date of Admission: 12/26/23
Date of Discharge: 12/30/23
Total time spent discharging patient (in min): 36
-
Pending Results: No
Hospital Course
Primary diagnosis:
Urinary tract infection/pyelonephritis
Acute supraventricular tachycardia
Sepsis
Acute kidney injury
Hyponatremia
Hypokalemia
Obesity
Diverticulosis
Essential hypertension
Secondary diagnoses:
History of nephrolithiasis
Hyperlipidemia
Osteoarthritis
History of transient ischemic attack
Depression
Umbilical hernia
Hospital course:
1-year-old female with past history of nephrolithiasis who presented with nausea, vomiting, urinary complaints. Patient stated she was not able to take her diltiazem doses for 3 days. On admission, she was septic secondary to acute urinary tract
infection/pyelonephritis. Urine analysis showed positive nitrite, 2+ esterase, 80-90 WBCs, many bacteria. Developed acute SVT and hypotension likely secondary to sepsis and missed diltiazem doses. Was given Lopressor IV which did not change her
rhythm, underwent cardioversion in the ER, was started on amiodarone. Cardiology recommended holding amiodarone and starting adenosine if needed -likely AVNRT. Diltiazem was restarted. Patient was taught to perform the Valsalva maneuver for self
termination and was advised to follow-up with outpatient cardiology if SVT becomes recurrent/symptomatic after discharge. Patient converted to normal sinus rhythm following diltiazem. Echo was unchanged from prior done 03/2020. Abdomen pelvis CT
without contrast demonstrated stranding and edema tracking along the right kidney and proximal ureter concerning for pyelonephritis with no hydronephrosis and discrete renal calculus, colonic diverticulosis without evidence of acute diverticulitis.
Chest x-ray showed no acute abnormalities. Urine culture was positive for E. coli (coburn sensitive), blood culture showed no growth. Patient complained of diarrhea during stay, stool C. difficile antigen and toxin were negative, likely related to
antibiotics use. Patient was initially started on Zosyn, switched to cefazolin and discharged home with Keflex 500 mg 4 times daily for an additional 10 days. Creatinine level was elevated on admission (1.9), likely in the setting of sepsis but
downtrended during admission with creatinine level 1.1 on day of discharge. Patient also had hypokalemia which was repleted. BMP to be checked on Tuesday 01/02 for potassium level.
Patient is medically stable to be discharged home today with Keflex 500 mg 4 times daily (to be continued through 01/08/2024) and continued home meds. Should follow-up with outpatient cardiology if SVT becomes symptomatic/recurrent.
Discharge Plan
-
Patient Disposition: Home (Routine Discharge)
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
depression, osteoarthritis
Condition: Fair
Diet: As tolerated
Activity: As tolerated
Driving Restrictions: As prior to admission
Bathing Restrictions: None
Blood Work: BMP on Tuesday 01/02, script from PCP
Referrals:
Mya Hardy CRNP [Specified Professional Personl] - 01/26/24 9:20 am
Turner Mcmullen MD [Family Provider] - (Please check potassium levels on 01/02)
Additional Discharge Medication Instructions: You will need to follow-up with cardiology if you have palpitations.
Prescriptions:
New
Lactobac/Bifidobac [Visbiome]
2 cap PO DAILY Qty: 14 0RF
hydralazine 50 mg Tablet
50 mg PO TID Qty: 90 0RF
cephalexin 500 mg capsule
500 mg PO Q6H Qty: 40 0RF
Continued
diltiazem HCl [DILT-XR] 120 mg capsule,ext.rel 24h degradable
120 mg PO DAILY
fluoxetine 20 mg capsule
40 mg PO DAILY
Patient Comments:
PT PRESCRIBED 60MG DAILY HOWEVER PT ONLY TAKES 40MG DAILY
clobetasol 0.05 % solution
1 applic TOPICAL BID PRN (Reason: SCALP ITCH)
Discharge Orders:
Discharge Patient (As Directed); Ordered 12/30/23
Ordered By: Johnathan Chapa
Discharge Date and Time
Discharge Date/Time: 12/30/23 14:41
Print Language: TOGOLESE
[2023-12-30 10:26] LABS: % Basophils 0.6 % (0-2); % Eosinophils 1.9 % (0-6); % Immature Granulocytes 2.6 % (0-0.5); % Lymphocytes 8.2 % (20.5-51.1); % Neutrophils 74.7 % (42.2-75.2); Absolute Basophils 0.1 10^3/uL (0-0.2); Absolute Eosinophils 0.2 10^3/uL (0-0.7); Absolute Immature Granulocytes 0.3 10^3/uL (0-0.05); Absolute Lymphocytes 0.9 10^3/uL (1.2-3.4); Absolute Monocytes 1.3 10^3/uL (0.1-0.6); Absolute Neutrophils 7.8 10^3/uL (1.4-6.5); Hematocrit 34.4 % (37.0-47.0); Hemoglobin 11.6 g/dL (12.0-16.0); Mean Corp Hgb Conc. 33.7 g/dL (33.0-37.0); Mean Corpuscular Hgb 30.4 pg (27.0-31.0); Mean Corpuscular Volume 90.1 fL (81.0-99.0); Mean Platelet Volume 11.3 fL (7.4-10.4); Nucleated Red Blood Cells % 0 %; Platelet Count 246 10^3/uL (130-400); Red Blood Cell Count 3.82 10^6/uL (4.20-5.40); Red Cell Dist. Width 14.6 % (11.5-14.5); White Blood Cell Count 10.4 10^3/uL (4.8-10.8)
[2023-12-30 10:56] LABS: Blood Urea Nitrogen 18 mg/dl (7-17); Calcium 8.5 mg/dl (8.4-10.2); Carbon Dioxide 20 mmol/L (22-30); Chloride 109 mmol/L (98-107); Estimated Creatinine Clearance 46 ml/min; Glucose 87 mg/dl (70-99); Potassium 3.2 mmol/L (3.5-5.1); Sodium 141 mmol/L (135-145)
[2023-12-30 12:11] LABS: Glucose - Point of Care 172 mg/dl (70-99)
--- NOTE | 2023-12-30 12:15 | W.PN.ID1 ---
Date of Service
Date of Service: December 30, 2023
Today's Communication
Continue abx.
Assessment / Plan
Right-sided pyelonephritis
- urine cultures with E. coli (coburn-sensitive)
Normal white count with left shift
Lactic acidosis
IVETTE
HTN
Nephrolithiasis
Dyslipidemia
Depression
Diverticulosis
Osteoarthritis
Hx TIA
Ventral hernia
Recommendations:
E. coli sensitivities reviewed and isolate is pansensitive.
Continue cefazolin 2 g IV every 8 hours. At D/C, transition to keflex 500 mg PO QID, to continue through 01/08/24
Follow white count and temperature curve.
����������������������������������������������������������
Chief Complaint
-: UTI
Subjective / Review of Systems
Review of Systems: No Fever, No Chills and No Dysuria
Vital Signs / Physical Exam
Vital Signs
Vital Signs
Temp Pulse Resp BP Pulse Ox
97.2 F 77 18 160/90 97
12/30/23 07:00 12/30/23 08:15 12/30/23 07:00 12/30/23 08:20 12/30/23 10:42
Physical Exam
Constitutional: No Acute Distress, Comfortable and Non-toxic
Head: Normocephalic
Eyes: Sclera Anicteric
Cardiovascular: S1/S2; Negative S3/S4
Pulmonary: Clear and Non Labored; Negative Wheezes, Rales or Rhonchi
Gastrointestinal: Soft, Non Tender, Non Distended and Other (Rectal tube in place with liquid stool)
Genito-Urinary: Negative CVA Tenderness
Extremities: Negative Edema, Cyanosis or Erythema
Neurological: Awake, Alert and Oriented
Psychological: Calm
Objective Data
Lab Data
Lab Results
12/30/23 08:28
12/30/23 08:28
PT 17.0 Sec (11.4-14.6) H 12/27/23 04:49
INR 1.40 12/27/23 04:49
APTT 41.1 Sec (23.4-35.0) H 12/27/23 04:49
Estimated Creat Clear 46 ml/min 12/30/23 08:28
Lactic Acid 1.9 mmol/L (0.7-2.0) 12/27/23 10:36
Total Bilirubin 1.0 mg/dl (0.2-1.3) 12/26/23 15:36
AST 24 U/L (14-36) 12/26/23 15:36
ALT 11 U/L (0-35) 12/26/23 15:36
Alkaline Phosphatase 97 U/L (38-126) 12/26/23 15:36
Most recent labs reviewed.
Micro Results:
12/26/23 22:33 Blood Culture - Preliminary
Blood/Venous No Growth in 72 hours- Final report to follow
12/26/23 19:08 Urine Culture - Final
Urine Escherichia coli
M.I.C. RX
--------- ---
Amoxicillin/Potas. Clavulanate <=8/4 S
Ampicillin <=8 S
Ampicillin/Sulbactam <=4/2 S
Aztreonam <=4 S
Cefazolin <=2 S
Ertapenem <=0.5 S
Ciprofloxacin <=0.25 S
Gentamicin <=2 S
Meropenem <=1 S
Nitrofurantoin-Urine Only <=32 S
Piperacillin/Tazobactam <=8 S
Tetracycline <=4 S
Tobramycin <=2 S
Trimethoprim/Sulfamethoxazole <=2/38 S
12/28/23 11:29 C. difficile GDH Antigen & Toxins - Final
Feces/Stool Negative for toxigenic C.difficile
12/26/23 15:36 Influenza Types A & B (MIMA) - Final
Nasal Swab Negative for Influenza A & B, NAAT
Negative results must be combined with clinical observations
and patient history.
Nucleic Acid Amplification test (NAAT)performed on the
[employer] platform.
Imaging:
12/26/2023 CT abdomen/pelvis without contrast: There is stranding and edema tracking along the right kidney and proximal ureter concerning for pyelonephritis. No hydronephrosis or discrete renal calculi is noted. Colonic diverticulosis also seen,
but without evidence for acute diverticulitis. Please see full dictation for additional detail.
[2023-12-30] MEDS: KCL 40 MEQ PO (12:22)
--- NOTE | 2023-12-30 12:24 | CM ---
IV/AB, monitoring labs. Discharge plan of care: Anticipate no needs. If home IV/AB will need infusion and VN services.
[2023-12-30 13:30] VITALS: BP 161/78
--- NOTE | 2023-12-30 13:32 | CM ---
Patient has been medically cleared for discharge to home with no additional skilled services. Patient has arranged for transport home.
== END 2023-12-30 14:41 | disposition home or self-care (01) | DRG 308 ==
LOC: 2 NORTH 22:13
PROVIDERS: Emergency Medicine; Nurse Practitioner Family; Nurse Practitioner Gerontology; Student in an Organized Health Care Education/Training Program; ADMITTING PHYSICIAN Internal Medicine; ATTENDING PHYSICIAN Internal Medicine; CONSULT PHYSICIAN Internal Medicine Cardiovascular Disease; CONSULT PHYSICIAN Specialist; EMERGENCY PHYSICIAN Emergency Medicine; FAMILY PHYSICIAN Family Medicine; OTHER PHYSICIAN Internal Medicine Critical Care Medicine; OTHER PHYSICIAN Internal Medicine Infectious Disease
PROC: 5A2204Z Restoration of Cardiac Rhythm, Single (ICD-10-PCS; 2023-12-26)
DX: I47.19 Other supraventricular tachycardia (principal); A41.51 Sepsis due to Escherichia coli [E. coli]; E87.1 Hypo-osmolality and hyponatremia; I5A Non-ischemic myocardial injury (non-traumatic); N10 Acute pyelonephritis; N17.9 Acute kidney failure, unspecified; E87.20 Acidosis, unspecified; K52.1 Toxic gastroenteritis and colitis; I10 Essential (primary) hypertension; E78.2 Mixed hyperlipidemia; E86.0 Dehydration; Z79.82 Long term (current) use of aspirin; R73.03 Prediabetes; F32.A Depression, unspecified; R73.9 Hyperglycemia, unspecified; T36.0X5A Adverse effect of penicillins, initial encounter; E87.6 Hypokalemia; G89.4 Chronic pain syndrome; E66.09 Other obesity due to excess calories; M19.90 Unspecified osteoarthritis, unspecified site; Z68.34 Body mass index [BMI] 34.0-34.9, adult; Z86.73 Personal history of transient ischemic attack (TIA), and cerebral infarction without residual deficits; Z79.899 Other long term (current) drug therapy; Z96.652 Presence of left artificial knee joint; Z11.52 Encounter for screening for COVID-19
CPT/HCPCS: 71045; 74176; 80048; 80053; 81003; 81015; 82962; 83036; 83605; 83735; 84100; 84484; 85025; 85610; 85730; 87040; 87086; 87088; 87186; 87324; 87449; 87502; 87811; 92960; 93005; 93306; 96361; 96374; 96375; 96376; 99152; 99291

== ENCOUNTER → 2024-08-08 10:52 | Outpatient (REF) | payer MEDICARE, SELFPAY | LOC: HWRAD 10:52 | PROVIDERS: ATTENDING PHYSICIAN Family Medicine | DX: M79.672 Pain in left foot (principal) | CPT/HCPCS: 73630 ==

== ENCOUNTER → 2024-11-20 09:44 | Outpatient (REF) | payer MEDICARE, SELFPAY | LOC: HWRAD 09:44 | PROVIDERS: ATTENDING PHYSICIAN Family Medicine | DX: M79.672 Pain in left foot (principal); M10.9 Gout, unspecified | CPT/HCPCS: 73630 ==

== ENCOUNTER → 2025-02-14 12:33 | Outpatient (REF) | payer MEDICARE, SELFPAY | LOC: HWRAD 12:33 | PROVIDERS: ATTENDING PHYSICIAN Physician Assistant Medical | DX: M25.511 Pain in right shoulder (principal); M54.2 Cervicalgia | CPT/HCPCS: 72052; 73030 ==

== ENCOUNTER 2025-04-29 09:40 | Emergency (ER) | payer MEDICARE, SELFPAY ==
[2025-04-29 09:51] VITALS: BP 148/89
[2025-04-29 10:31] LABS: Hematocrit 41.8 % (37.0-47.0); Hemoglobin 14.0 g/dL (12.0-16.0); Mean Corp Hgb Conc. 33.5 g/dL (33.0-37.0); Mean Corpuscular Volume 87.8 fL (81.0-99.0); Nucleated Red Blood Cells % 0 %; Platelet Count 347 10^3/uL (130-400); Red Cell Dist. Width 13.4 % (11.5-14.5)
[2025-04-29 10:50] LABS: ALT (SGPT) 11 U/L (0-35); AST (SGOT) 24 U/L (14-36); Albumin 4.6 g/dl (3.5-5.0); Alkaline Phosphatase 79 U/L (38-126); Blood Urea Nitrogen 29 mg/dl (7-17); Calcium 11.1 mg/dl (8.4-10.2); Carbon Dioxide 29 mmol/L (22-30); Chloride 101 mmol/L (98-107); Glucose 126 mg/dl (70-99); Lipase 44 U/L (23-300); Potassium 4.0 mmol/L (3.5-5.1); Sodium 139 mmol/L (135-145); Total Protein 7.5 g/dl (6.3-8.2); eGFR 45.48
[2025-04-29 13:11] VITALS: BP 152/87
--- NOTE | 2025-04-29 14:33 | ED.GENMED ---
History of Present Illness
General
Chief Complaint: Abdominal Symptoms
Time Seen by Provider: 04/29/25 13:29
History of Present Illness
History of Present Illness:
see MDM
Phy Exam
Physical Exam
Physical Exam:
see ,MDM
Course
Orders/Labs/Results
Orders:
Orders
04/29/25 10:07
CMP [Comprehensive Metabolic Panel] Urgent
Complete Blood Count/With Diff Urgent
Lipase Urgent
04/29/25 14:34
0.9% Sodium Chloride 1000 ml [Nss] 1,000 ml IV BOLUS
04/29/25 14:38
Lactic Acid Urgent
04/29/25 14:44
CT Abd/Pel (IV only)-DH only Urgent
Comment:
Reason For Exam: incarcerated hernia, vomiting
04/29/25 16:22
Urinalysis Reflex To Culture Urgent
Date Specimen was Collected: 04/29/25
Time Specimen was Collected: 09:57
Urine Microscopic Reflex Cult Urgent
Urine Culture Urgent
DAVI Source: U
Specimen Description:
Date Specimen was Collected: 04/29/25
Time Specimen was Collected: 09:57
04/29/25 16:37
0.9% Sodium Chloride 500 ml [Nss] 500 ml IV BOLUS
04/29/25 17:20
Amoxicillin 875 mg/Clav 125 mg [Augmentin 875 mg/125 mg] 1 tablet PO NOW STA
Abnormal Lab Results
04/29/25 04/29/25
10:07 16:22
MPV 10.5 H fL
(7.4-10.4)
Absolute Neuts (auto) 8.0 H 10^3/uL
(1.4-6.5)
Absolute Lymphs (auto) 0.5 L 10^3/uL
(1.2-3.4)
Neutrophils % 87.4 H %
(42.2-75.2)
Lymphocytes % 5.0 L %
(20.5-51.1)
BUN 29 H mg/dl
(7-17)
Creatinine 1.2 H mg/dL
(0.6-1.0)
Glucose 126 H mg/dl
(70-99)
Calcium 11.1 H mg/dl
(8.4-10.2)
Urine Ketones 2+ A
(Negative)
Ur Occult Blood Reflex 3+ A
(Negative)
Urine Nitrite (Reflex) Positive A
(Negative)
Leukocyte Esterase Rfl 3+ A
(Negative)
Urine RBC 7-10 A /HPF
(0-2)
Urine WBC (Reflex) 60-70 A /HPF
(0-5)
Urine Bacteria (Reflex) Many A
(Negative)
Urine Albumin (Reflex) 2+ A
(Neg - Trace)
04/29/25 10:07
04/29/25 10:07
Vital Signs
Initial and Last Documented VS:
Initial Vital Signs
Temp Pulse Resp BP Pulse Ox
36.6 C 90 16 148/89 98
04/29/25 09:51 04/29/25 09:51 04/29/25 09:51 04/29/25 09:51 04/29/25 09:51
Last Documented Vital Signs
Temp Pulse Resp BP Pulse Ox
36.6 C 70 16 154/85 95
04/29/25 09:51 04/29/25 13:11 04/29/25 13:11 04/29/25 17:00 04/29/25 16:59
MDM/Problems Addressed
Differential Diagnosis Includes:
see MDM
MDM/Problems Addressed:
Note:
CHIEF COMPLAINT(S)
Constipation, nausea, vomiting, and abdominal pain.
HISTORY OF PRESENT ILLNESS
The patient is an 79-year-old female who presents with severe constipation, nausea, vomiting, and abdominal pain, which started approximately three years ago. She reports having been on medications such as polyethylene glycol, and bisacodyl recently
to manage constipation but she has not had a BM an dis not passing gas.
She experienced nausea and vomiting beginning 2 dyas ago, and was unable to hold down fluids since then, with any intake resulting in vomiting within a short period. She last attempted to drink four sips of water today, which led to vomiting shortly
thereafter.
she has abd pain but felt better today
The patient also reveals a history of hernia, which she has known about for years. This hernia sometimes protrudes and becomes tender, potentially explaining the bowel obstruction symptoms. There were concerns that the hernia incarceration might
have led to her current symptoms of bowel obstruction, which were possibly exacerbated by the hernia being stuck and necessitating intervention today to reduce it back manually.
[employer]
It was mentioned that she had previous abdominal hernia issues and experiences anxiety about potential surgical interventions due to past complications heard from acquaintances.
PHYSICAL EXAM and
GENERAL: Alert , in no apparent distress
EYE: pupils equal and reactive
NECK: Supple
ENT: o/p clr, mmm.
CARDIAC: Regular rate and rhythm .
LUNGS: Clear breath sounds bilaterally, no acute respiratory distress, no wheezes/rales/rhonchi
ABDOMEN: Soft, moderate ventral or umbilical abdominal hernia which feels incarcerated, tender, no overlying skin changes, moderate abdominal distention, no r/g, no cvat, hypoactive bowel sounds
I was able to reduce the hernia I believe
NEUROLOGICAL: Alert and oriented, no focal neuro deficits
SKIN: Warm and dry, skin intact.
MUSCULOSKELETAL: No edema, well perfused. neg cathryn's sign
PSYCH: Normal and appropriate interaction.
- Nursing notes reviewed and vital signs reviewed.
PROBLEM LIST
Acute:
1. Suspected incarcerated hernia
2. Bowel obstruction
3. Vomiting and dehydration
PLAN
1. Perform a CT scan of the abdomen to assess for bowel obstruction and hernia involvement.
2. Maintain the patient on nothing by mouth until further evaluation.
3. Administer intravenous fluids for rehydration.
4. Provide intravenous pain management and ice pack application to the hernia site.
5. Monitor for further signs of obstruction, with surgical consultation as appropriate.
6. Plan for observation overnight at the medical facility to ensure stability and prevent complications from possible bowel obstruction or hernia incarceration.
7. A surgical consultation will be considered to assess the hernia and potential future interventions.
DIFFERENTIAL DIAGNOSIS
The Differential Diagnosis includes, in no particular order and is not limited to:
1. Incarcerated Hernia
2. Partial or complete bowel obstruction
3. Ileus
4. Peptic ulcer disease
5. Acute diverticulitis
6. Appendicitis
7. Acute gastritis
8. Mesenteric ischemia
9. Gastroenteritis
10. Gastroparesis
79-year-old female with a history of constipation, known abdominal hernia, no previous abdominal surgery presents for abdominal pain nausea vomiting constipation. Started with constipation 4 days ago and patient has not had a bowel movement despite
multiple laxatives. She started vomiting 2 days ago and has vomited anything she drank.
Patient says she woke up this morning and did take a Zofran and felt better but then tried to take 4 sips of water and vomited. On exam she has a large abdominal hernia that seemed incarcerated, tender. I was able to at least mostly reduce the
hernia by placing the patient in Trendelenburg and pressing. Patient likely has a bowel obstruction related to this. She will get a CT and disposition made based off of that. signed out to mike at 345 pm
*Pulse Oximetry
SaO2: 97
Oxygen Mode of Delivery: Room air
Patient hypoxic: no (95)
*Critical Care Note
Total Time (30-74mins, 75-104mins- exclusive of procedures): Not Applicable
ED Attending Note
-
Portions of this chart may have been created with voice recognition software.� Occasional wrong word or��sound alike� substitutions may have occurred due to the inherent limitations of voice recognition software.
Discharge Plan
Departure
Patient Disposition: Home (Routine Discharge)
Date of Disposition: 04/29/25
Time of Disposition: 17:44
Patient with high blood pressure during this ER visit?: No
Condition: Good
Covid-19: Not Applicable
Discharge Problem:
Enteritis, UTI (urinary tract infection)
Instructions: Clear Liquid Diet, Nausea and Vomiting, Adult (DC), Urinary tract infection (DC), Abdominal Pain
Prescriptions:
New
amoxicillin-pot clavulanate 875-125 mg tablet
1 tab PO BID Qty: 14 0RF
ondansetron 4 mg tablet,disintegrating
4 mg PO Q8H PRN (Reason: nausea and vomiting) 4 Days Qty: 12 0RF
No Action
diltiazem HCl [DILT-XR] 120 mg capsule,ext.rel 24h degradable
120 mg PO DAILY
fluoxetine 20 mg capsule
40 mg PO DAILY
Patient Comments:
PT PRESCRIBED 60MG DAILY HOWEVER PT ONLY TAKES 40MG DAILY
clobetasol 0.05 % solution
1 applic TOPICAL BID PRN (Reason: SCALP ITCH)
Lactobac/Bifidobac [Visbiome]
2 cap PO DAILY Qty: 14 0RF
hydralazine 50 mg Tablet
50 mg PO TID Qty: 90 0RF
cephalexin 500 mg capsule
500 mg PO Q6H Qty: 40 0RF
Referrals:
Jose Rashid MD [Active, Surgical] - Next open appointment
Referral Note: Follow-up for further evaluation of your umbilical hernia
Turner Mcmullen MD [Family Provider, Family Practice]
Activity Restrictions/Additional Instructions:
Follow-up with your family doctor in the a.m. Return to the emergency department immediately for any changes in/worsening of your symptoms.
Interventions
Interventions:
*General Assessment Last Done: 04/29/25 13:11
*Neglect/Abuse Screening Last Done: 04/29/25 09:51
*ED COVID-19 Vaccine History Last Done: 04/29/25 13:11
*ED Influenza Vaccine History Last Done: 04/29/25 13:11
[facility] Risk Assessment Tool Last Done: 04/29/25 13:03
*Risk Screen - Suicide (C-SSRS) Last Done: 04/29/25 09:51
*Nursing Disposition Last Done: 04/29/25 18:13
WQ-Bmdfyv-Ghlqytjpct Assessment Last Done: 04/29/25 13:04
Discharge Date and Time
Discharge Date/Time: 04/29/25 18:22
Print Language: HUNGARIAN
[2025-04-29] MEDS: NSS 1000 IV (14:40)
[2025-04-29 16:21] VITALS: BP 156/86
[2025-04-29] MEDS: NSS 500 IV (16:38)
[2025-04-29 16:45] LABS: Urine Character Cloudy (Clear)
[2025-04-29 17:00] VITALS: BP 154/85
[2025-04-29 17:04] LABS: Urine Squamous Cell 26-30 /LPF (Few)
[2025-04-29 17:05] LABS: Urine White Cell 60-70 /HPF (0-5)
[2025-04-29] MEDS: AUGMENTIN 875 MG/125 MG 1 TABLET PO (17:27)
== END 2025-04-29 18:22 | disposition home or self-care (01) ==
LOC: EMR 09:40
PROVIDERS: Emergency Medicine; Physician Assistant; EMERGENCY PHYSICIAN Emergency Medicine; FAMILY PHYSICIAN Family Medicine
DX: K52.9 Noninfective gastroenteritis and colitis, unspecified (principal); N39.0 Urinary tract infection, site not specified
CPT/HCPCS: 99284; 96360; 74177; 80053; 81003; 81015; 83605; 83690; 85025; 87077; 87086; Q9967